=== PATIENT | female | born 1975 | race Caucasian/White ===

== ENCOUNTER 2020-12-28 08:53 | Emergency (ER) | payer OTHER, SELFPAY ==
[2020-12-28 09:00] VITALS: BP 98/50; PULSE 67; RESP 20; TEMP 36.5; O2SAT 100
--- NOTE | 2020-12-28 09:13 | ED.FEMALEGU ---
HPI - Female Genitourinary General Chief complaint: Urogenital-Female Stated complaint: poss uti Time Seen by Provider: 12/28/20 09:13 Source: patient History of Present Illness HPI Narrative: patient presents with concern for std. patient has a new sexual partner and did not use condoms. patient states she has been on Macrobid for the last 3 days for uti. Patient reports a history of bacterial vaginitis. no abdominal pain no vaginal bleeding no pelvic pain no vaginal discharge. no flank pain and no gross hematuria. MD elicited complaint: dysuria and possible STD Related Data Home Medications Medication Instructions Recorded Confirmed diclofenac sodium 75 mg PO BID 12/28/20 12/28/20 divalproex 500 mg PO BID 12/28/20 12/28/20 fluoxetine 20 mg PO DAILY 12/28/20 12/28/20 nitrofurantoin monohyd/m-cryst 100 mg PO BID 12/28/20 12/28/20 omeprazole 40 mg PO QAM 12/28/20 12/28/20 Allergies Allergy/AdvReac Type Severity Reaction Status Date / Time Sulfa (Sulfonamide Allergy Severe Anaphylaxis Verified 12/28/20 09:19 Antibiotics) Review of Systems Review of Systems: CONSTITUTIONAL: Denies fever, chills, or sweats. EYES: Denies visual changes, redness, or discharge. ENT: Denies rhinorrhea, congestion, sore throat, or otalgia. CARDIOVASCULAR: Denies chest pain, palpitations, or edema. RESPIRATORY: Denies cough or dyspnea. GASTROINTESTINAL: Denies abdominal pain, nausea, vomiting, or diarrhea. GENITOURINARY: Denies dysuria or hematuria. SKIN: Denies rash or itching. MUSCULOSKELETAL: Denies back pain, joint pain, or myalgia. NEUROLOGIC: Denies headache, numbness, or weakness. PSYCHIATRIC: Denies anxiety or depression. PMFSH Social History Social History Smoking status: Never smoker Comments At time of signature, agree with nursing past medical, surgical, social and family history. There is no relevant family history pertinent to the presenting complaint Exam Narrative: GENERAL: Well-appearing, well-nourished, and in no acute distress. HEAD: Normocephalic, atraumatic. EYES: PERRLA and EOMI. ENT: Nares clear, no rhinorrhea or epistaxis. Mucous membranes moist. NECK: Supple. CHEST: Clear to auscultation. No respiratory distress. HEART: Regular rate and rhythm. No murmur heard. Normal peripheral pulses. ABDOMEN: Soft, nontender, nondistended, normal active bowel sounds. EXTREMITIES: Normal range of motion. No edema. SKIN: Warm, dry, no rash. NEURO: No focal deficits. Alert and oriented x3. [place] Coma Scale Eye Opening: Spontaneous 4 [place] Coma Scale Motor: Obeys Commands 6 [place] Coma Scale Verbal: Oriented 5 [place] Coma Scale Total 15 Course Vital Signs Vital signs: Vital Signs Temperature 36.5 C 12/28/20 09:00 Pulse Rate 67 12/28/20 09:00 Respiratory Rate 20 12/28/20 09:00 Blood Pressure 98/50 L 12/28/20 09:00 Pulse Oximetry 100 12/28/20 09:00 Temperature 36.5 C 12/28/20 09:00 Pulse Rate 67 12/28/20 09:00 Respiratory Rate 20 12/28/20 09:00 Blood Pressure 98/50 L 12/28/20 09:00 Pulse Oximetry 100 12/28/20 09:00 MDM - Female Genitourinary Differential Diagnosis Differential diagnosis: Likely urinary tract infection, bacterial vaginosis, trichomoniasis, cervicitis, ovarian cyst, vaginitis, ruptured ovarian cyst, cystitis and dysmenorrhea Medical Records Attestation: I reviewed the patient's medical records. Lab Data Attestation: I reviewed the patient's lab results. Labs: UCG Bedside Result Negative Reference Range: Negative Urine Glucose Trace Reference Range: Negative Urine Glucose Trace Reference Range: Negative Urine Bilirubin Negative Reference Range: Negative Urine Bilirubin
== END 2020-12-28 09:30 | disposition home or self-care (01) ==
PROVIDERS: Emergency Provider Nurse Practitioner Family; PCP Nurse Practitioner Family
DX: Z20.2 Contact with and (suspected) exposure to infections with a predominantly sexual mode of transmission (principal)
CPT/HCPCS: 81003; 81025; 87086; 87088; 87491; 87591; 87661; 99204; G0463

== ENCOUNTER 2021-01-29 10:23 | Emergency (ER) | payer OTHER, SELFPAY ==
[2021-01-29 11:29] VITALS: BP 140/74; PULSE 62; RESP 16; TEMP 36.6; O2SAT 100
--- NOTE | 2021-01-29 12:03 | ED.FEMALEGU ---
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 She reports vaginal burning and itching, increases with urination. She reports being treated for yeast infection as well as bacterial vaginosis in the past month. She reports symptoms initially resolved and reports complaints again. She denies exposure to STDs. She denies all other complaints at this time. Related Data Home Medications Medication Instructions Recorded Confirmed diclofenac sodium 75 mg PO BID 12/28/20 01/29/21 divalproex 500 mg PO BID 12/28/20 01/29/21 fluoxetine 20 mg PO DAILY 12/28/20 01/29/21 omeprazole 40 mg PO QAM 12/28/20 01/29/21 Allergies Allergy/AdvReac Type Severity Reaction Status Date / Time Sulfa (Sulfonamide Allergy Severe Anaphylaxis Verified 01/29/21 11:48 Antibiotics) Review of Systems Review of Systems: CONSTITUTIONAL: Denies fever, chills, or sweats. EYES: Denies visual changes, redness, or discharge. ENT: Denies rhinorrhea, congestion, sore throat, or otalgia. CARDIOVASCULAR: Denies chest pain, palpitations, or edema. RESPIRATORY: Denies cough or dyspnea. GASTROINTESTINAL: Denies abdominal pain, nausea, vomiting, or diarrhea. GENITOURINARY: Reports vaginal burning and itching. MUSCULOSKELETAL: Denies back pain, joint pain, or myalgia. NEUROLOGIC: Denies headache, numbness, dizziness, or weakness. PSYCHIATRIC: Denies anxiety or depression. [facility] Past Medical History Medical History No significant past medical history Surgical History Surgical History No significant past surgical history Social History Social History (Updated 01/29/21 @ 12:11 by ALE Hernandez) Smoking status: Never smoker Alcohol intake: never Substance use: never Living arrangements: with family Occupation/Education: occupation Comments At the time of signature, I have reviewed and agree with nursing past medical, surgical, social, and family history unless otherwise noted. Please see nursing chart for further information. There is no relevant family history pertinent to the presenting complaint. Exam Narrative: GENERAL: Well-appearing, well-nourished, and in no acute distress. HEAD: Normocephalic, atraumatic. EYES: EOMI. No redness or drainage. Conjunctiva are normal. ENT: Mucous membranes pink and moist. CHEST: No respiratory distress. Clear to auscultation. HEART: Regular rate and rhythm. No murmur appreciated. Normal peripheral pulses. GI: Soft, nontender without rebound, or guarding. No distention. Bowel sounds normal in all quadrants. MUSCULOSKELETAL: No bony tenderness. EXTREMITIES: Normal range of motion. No edema. SKIN: Warm, dry, no rash. NEURO: No focal deficits. Alert and oriented x3. Gait steady. PSYCH: Normal affect. No signs of depression or anxiety. Course Vital Signs Vital signs: Vital Signs Temperature 36.6 C 01/29/21 11:29 Pulse Rate 62 01/29/21 11:29 Respiratory Rate 16 01/29/21 11:29 Blood Pressure 140/74 01/29/21 11:29 Pulse Oximetry 100 01/29/21 11:29 Temperature 36.6 C 01/29/21 11:29 Pulse Rate 62 01/29/21 11:29 Respiratory Rate 16 01/29/21 11:29 Blood Pressure 140/74 01/29/21 11:29 Pulse Oximetry 100 01/29/21 11:29 Reviewed-patient is informed that they may have pre-hypertension or hypertension based on a blood pressure reading. I recommend the patient call the primary care provider listed on their discharge instructions or a physician of their choice this week to arrange follow-up for further evaluation of possible pre-hypertension or hypertension. MDM - Female Genitourinary MDM Narrative Medic
== END 2021-01-29 12:20 | disposition home or self-care (01) ==
PROVIDERS: Emergency Provider Nurse Practitioner
DX: N89.8 Other specified noninflammatory disorders of vagina (principal); G40.909 Epilepsy, unspecified, not intractable, without status epilepticus
CPT/HCPCS: 81003; 99213; G0463

== ENCOUNTER 2021-05-27 15:49 | Emergency (ER) | payer OTHER, SELFPAY ==
--- NOTE | 2021-05-27 15:58 | ED.FEMALEGU ---
HPI - Female Genitourinary General Chief complaint: Urogenital-Female Stated complaint: poss uti Time Seen by Provider: 05/27/21 15:58 Source: patient and RN notes reviewed History of Present Illness HPI Narrative: Patient is a 45-year-old female who presents the urgent care with complaints of a possible UTI. Patient states that 2 days ago she started with frequency, itching and dysuria. Patient denies of any vaginal discharge, blood in the urine, fever, nausea, vomiting, abdominal pain. Patient does have frequent UTIs however her last culture was negative for bacteria. Patient took Azo at the onset of symptoms. No other acute complaints. No acute distress noted. Patient read the plan of care. Some parts of this dictation were generated by voice recognition software and may contain typographical and/or grammatical inaccuracies. Related Data Home Medications Medication Instructions Recorded Confirmed diclofenac sodium 75 mg PO BID 12/28/20 05/27/21 divalproex 500 mg PO BID 12/28/20 05/27/21 fluoxetine 20 mg PO DAILY 12/28/20 05/27/21 dicyclomine 20 mg PO QID 05/27/21 05/27/21 ergocalciferol (vitamin D2) 1,250 mcg PO WEEKLY 05/27/21 05/27/21 gabapentin 300 mg PO HS 05/27/21 05/27/21 pantoprazole 40 mg PO DAILY 05/27/21 05/27/21 topiramate 25 mg PO DAILY 05/27/21 05/27/21 Allergies Allergy/AdvReac Type Severity Reaction Status Date / Time Sulfa (Sulfonamide Allergy Severe Anaphylaxis Verified 05/27/21 16:04 Antibiotics) Review of Systems Review of Systems: CONSTITUTIONAL: Denies fever, chills, or sweats. EYES: Denies visual changes, redness, or discharge. ENT: Denies rhinorrhea, congestion, sore throat, or otalgia. CARDIOVASCULAR: Denies chest pain, palpitations, or edema. RESPIRATORY: Denies cough or dyspnea. GASTROINTESTINAL: Denies abdominal pain, nausea, vomiting, or diarrhea. GENITOURINARY: Reports of dysuria, urinary frequency and vaginal itching without vaginal discharge or blood in the urine SKIN: Denies rash or itching. MUSCULOSKELETAL: Denies back pain, joint pain, or myalgia. NEUROLOGIC: Denies headache, numbness, or weakness. All other systems reviewed are negative, except as documented in HPI. [facility] Past Medical History Medical History No significant past medical history Surgical History Surgical History No significant past surgical history Social History Social History (Updated 01/29/21 @ 12:11 by ALE Hernandez) Smoking status: Never smoker Alcohol intake: never Substance use: never Comments At the time of my signature, I reviewed and agree with the nursing past medical, surgical, social, and family history. There is no relevant family history pertinent to the patient complaint. Exam Narrative: GENERAL: This is a well-nourished, well-developed patient, in no apparent distress. HEAD: normocephalic, atraumatic. EYES: PERRL. Sclera clear/white. Vision is grossly intact. EARS: External ears normal NOSE: External nose normal with no obvious nasal discharge, nares without redness, no rhinorrhea. THROAT: Mucous membranes moist NECK: Neck supple CARDIOVASCULAR: Regular rate and rhythm without murmurs, gallops, or rubs. RESPIRATORY: Clear to auscultation. Breath sounds equal bilaterally. No wheezes, rales, or rhonchi. GASTROINTESTINAL: Abdomen soft, non-tender, nondistended. Bowel sounds are active. No hepato-splenomegaly, or palpable masses. No guarding. SKIN: warm, intact with no suspicious lesions or rash, good texture and turgor. NEURO: awake, alert, and oriented to person, place and time. There were no obvious focal neurologic abnormalities. EXTREMITIES: No clubbing, cyanosis, or edema. BACK: Nontender without deformity or crepitance. No flank tenderness. Course Course Level of Care: Express Care Visit Vital Signs Vital signs: Vital Signs Temperature 97.5
[2021-05-27 16:01] VITALS: BP 112/57; PULSE 92; RESP 16; TEMP 36.4; O2SAT 98
== END 2021-05-27 16:15 | disposition home or self-care (01) ==
PROVIDERS: Emergency Provider Nurse Practitioner Family
DX: N39.0 Urinary tract infection, site not specified (principal); G40.909 Epilepsy, unspecified, not intractable, without status epilepticus
CPT/HCPCS: 81003; 87086; 99213; G0463

== ENCOUNTER 2021-11-18 13:31 | Emergency (ER) | payer OTHER, SELFPAY ==
--- NOTE | 2021-11-18 13:34 | ED.FEMALEGU ---
HPI - Female Genitourinary General Chief complaint: Urogenital-Female Stated complaint: Vaginal Issue Time Seen by Provider: 11/18/21 13:34 Source: patient Mode of arrival: ambulatory Limitations: no limitations History of Present Illness HPI Narrative: Ms. Ramirez is a 46-year-old female patient presenting to the clinic today with complaints of burning with urination and vaginal irritation that started 1-1/2 hours ago. She reports she was out looking for jobs and began having discomfort and came into the [facility]. She reports that she was having sexual intercourse with her partner yesterday and he was pulling out and having her give oral and putting it back into her vagina. She reports that they have not had sex in some time so she was in a lot of pain during intercourse. She denies any bleeding from the vagina all odors, or discharge. Reports she is having burning with urination. Related Data Home Medications Medication Instructions Recorded Confirmed diclofenac sodium 75 mg 75 mg PO BID 12/28/20 11/18/21 tablet,delayed release divalproex 500 mg tablet,delayed 500 mg PO BID 12/28/20 11/18/21 release fluoxetine 20 mg capsule 20 mg PO DAILY 12/28/20 11/18/21 dicyclomine 20 mg tablet 20 mg PO QID 05/27/21 11/18/21 ergocalciferol (vitamin D2) 1,250 1,250 mcg PO WEEKLY 05/27/21 11/18/21 mcg (50,000 unit) capsule gabapentin 300 mg capsule 300 mg PO HS 05/27/21 11/18/21 pantoprazole 40 mg tablet,delayed 40 mg PO DAILY 05/27/21 11/18/21 release topiramate 25 mg tablet 25 mg PO DAILY 05/27/21 11/18/21 Allergies Allergy/AdvReac Type Severity Reaction Status Date / Time Sulfa (Sulfonamide Allergy Severe Anaphylaxis Verified 11/18/21 13:41 Antibiotics) Review of Systems Review of Systems: Pertinent positives per HPI. Patient denies any fever, chills, rash, headache, visual changes, dizziness, cough, runny nose, sore throat, shortness of breath, chest pain, palpitations, nausea, vomiting, diarrhea, constipation, abdominal pain, or any urinary issues. [facility] Past Medical History Medical History No significant past medical history Surgical History Surgical History No significant past surgical history Social History Social History Smoking status: Never smoker Alcohol intake: never Substance use: never Comments At the time of my signature, I reviewed and agree with the nursing past medical, surgical, social, and family history. There is no relevant family history pertinent to the patient complaint. Exam Narrative: General: Well-developed, well nourished, in no apparent distress Head: Normocephalic, atraumatic. Cardio: Regular rate and rhythm, s1 and s2 normal, no murmur appreciated. Resp: Clear to auscultation bilaterally, no rhonchi, rales, wheezing or rubs. Abdomen: Soft, pliable, bowel sounds present in all quadrants, non-tender to palpation, no CVAT tenderness. : Deferred Course Course Emergency Course: Portions of this record may have been created with voice recognition software. Level of Care: Express Care Visit Vital Signs Vital signs: Vital Signs Temperature 37.3 C 11/18/21 13:37 Pulse Rate 76 11/18/21 13:37 Respiratory Rate 16 11/18/21 13:37 Blood Pressure 119/59 L 11/18/21 13:37 Pulse Oximetry 100 11/18/21 13:37 Oxygen Delivery Room Air 11/18/21 13:37 Temperature 37.3 C 11/18/21 13:37 Pulse Rate 76 11/18/21 13:37 Respiratory Rate 16 11/18/21 13:37 Blood Pressure 119/59 L 11/18/21 13:37 Pulse Oximetry 100 11/18/21 13:37 Oxygen Delivery Room Air 11/18/21 13:37 Vital signs reviewed MDM - Female Genitourinary MDM Narrative Medical decision making narrative: At the time of visit patient is resting comfortably on the exam table. UA positive fo
[2021-11-18 13:37] VITALS: BP 119/59; PULSE 76; RESP 16; TEMP 37.3; O2SAT 100
== END 2021-11-18 14:13 | disposition home or self-care (01) ==
PROVIDERS: Emergency Provider Nurse Practitioner Family
DX: N30.01 Acute cystitis with hematuria (principal); G40.909 Epilepsy, unspecified, not intractable, without status epilepticus
CPT/HCPCS: 81003; 87077; 87086; 87088; 87186; 99213; G0463

== ENCOUNTER 2022-01-12 17:13 | Emergency (ER) | payer OTHER, SELFPAY ==
--- NOTE | 2022-01-12 17:18 | ED.FEMALEGU ---
HPI - Female Genitourinary General Chief complaint: Urogenital-Female Stated complaint: yeast or uti Time Seen by Provider: 01/12/22 17:19 Source: patient and RN notes reviewed History of Present Illness HPI Narrative: Patient is a 46-year-old female who presents the urgent care with complaints of a possible UTI and yeast infection. Patient has been to our facility 4 times within the last year for chronic UTI and yeast infections. 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 Patient states that she is not ready for hysterectomy and has continued to see her general doctor for continuous antibiotics and Diflucan. Patient was on Diflucan in November and Macrobid in October. Patient states that she started having burning with urination on Wednesday and itching from the front to the back over the last 24 to 48 hours. Patient denies of abdominal pain, nausea, vomiting, fever. States that she has had a mild increase in vaginal discharge. No other acute complaints. No acute distress noted. Patient aware of the plan of care. Some parts of this dictation were generated by voice recognition software and may contain typographical and/or grammatical inaccuracies. Related Data Home Medications Medication Instructions Recorded Confirmed divalproex 500 mg tablet,delayed 500 mg PO BID 12/28/20 01/12/22 release fluoxetine 20 mg capsule 20 mg PO DAILY 12/28/20 01/12/22 dicyclomine 20 mg tablet 20 mg PO QID 05/27/21 01/12/22 ergocalciferol (vitamin D2) 1,250 1,250 mcg PO WEEKLY 05/27/21 01/12/22 mcg (50,000 unit) capsule gabapentin 300 mg capsule 300 mg PO HS 05/27/21 01/12/22 pantoprazole 40 mg tablet,delayed 40 mg PO DAILY 05/27/21 01/12/22 release topiramate 25 mg tablet 25 mg PO DAILY 05/27/21 01/12/22 bupropion HCl 150 mg 24 hr tablet, 150 mg PO DAILY 01/12/22 01/12/22 extended release bupropion HCl 300 mg 24 hr tablet, 300 mg PO DAILY 01/12/22 01/12/22 extended release escitalopram oxalate 10 mg tablet 10 mg PO DAILY 01/12/22 01/12/22 Allergies Allergy/AdvReac Type Severity Reaction Status Date / Time Sulfa (Sulfonamide Allergy Severe Anaphylaxis Verified 01/12/22 17:25 Antibiotics) Review of Systems Review of Systems: CONSTITUTIONAL: Denies fever, chills, or sweats. EYES: Denies visual changes, redness, or discharge. ENT: Denies rhinorrhea, congestion, sore throat, or otalgia. CARDIOVASCULAR: Denies chest pain, palpitations, or edema. RESPIRATORY: Denies cough or dyspnea. GASTROINTESTINAL: Denies abdominal pain, nausea, vomiting, or diarrhea. GENITOURINARY: Reports of dysuria and vaginal irritation/itching SKIN: Denies rash or itching. MUSCULOSKELETAL: Denies back pain, joint pain, or myalgia. NEUROLOGIC: Denies headache, numbness, or weakness. All other systems reviewed are negative, except as documented in HPI. [facility] Past Medical History Medical History No significant past medical history Surgical History Surgical History No significant past surgical history Social History Social History Smoking status: Never smoker Alcohol intake: never Substance use: never Comments At the time of my signature, I reviewed and agree with the nursing past medical, surgical, social, and family history. There is no relevant family history pertinent to the patient complaint. Exam Narrative: GENERAL: This is a well-nourished, well-developed patient, in no apparent distress. HEAD: normocephalic, atraumatic. EYES: PERRL. Sclera clear/white. Vision is grossly intact. EARS: External ears normal NOSE: External nose normal with no obvious nasal discharge, nares without redness, no rhinorrhea. THROAT: Mucous membranes moist NECK: Neck supple CARDIOVASCULAR: Regular rate and rhy
[2022-01-12 17:20] VITALS: BP 100/75; PULSE 80; RESP 14; TEMP 37; O2SAT 99
[2022-01-12 17:30] VITALS: BP 100/75; PULSE 80; RESP 14; TEMP 37; O2SAT 99
== END 2022-01-12 17:58 | disposition home or self-care (01) ==
PROVIDERS: Emergency Provider Nurse Practitioner Family
DX: B37.3 Candidiasis of vulva and vagina (principal); N39.0 Urinary tract infection, site not specified; K21.9 Gastro-esophageal reflux disease without esophagitis; F32.A Depression, unspecified
CPT/HCPCS: 81003; 87086; 99213; G0463

== ENCOUNTER 2022-02-22 16:06 | Emergency (ER) | payer OTHER, SELFPAY ==
[2022-02-22 16:13] VITALS: BP 116/67; PULSE 84; RESP 20; TEMP 36.9; O2SAT 100
--- NOTE | 2022-02-22 16:14 | ED.URI ---
HPI - URI/Sore Throat General Chief Complaint: Upper Respiratory Infection Stated Complaint: cough headache runny nose Time Seen by Provider: 02/22/22 16:14 Source: patient and RN notes reviewed History of Present Illness HPI Narrative: Patient is a 46-year-old female who presents the urgent care with complaints of rhinorrhea, sore throat, headache and cough. Patient states symptoms started yesterday. Patient is taking Tylenol [id number]. Denies any known ill contacts. No other acute complaints. No acute distress noted. Patient aware of the plan of care. Some parts of this dictation were generated by voice recognition software and may contain typographical and/or grammatical inaccuracies. Related Data Home Medications Medication Instructions Recorded Confirmed divalproex 500 mg tablet,delayed 500 mg PO BID 12/28/20 01/12/22 release fluoxetine 20 mg capsule 20 mg PO DAILY 12/28/20 01/12/22 dicyclomine 20 mg tablet 20 mg PO QID 05/27/21 01/12/22 ergocalciferol (vitamin D2) 1,250 1,250 mcg PO WEEKLY 05/27/21 01/12/22 mcg (50,000 unit) capsule gabapentin 300 mg capsule 300 mg PO HS 05/27/21 01/12/22 pantoprazole 40 mg tablet,delayed 40 mg PO DAILY 05/27/21 01/12/22 release topiramate 25 mg tablet 25 mg PO DAILY 05/27/21 01/12/22 bupropion HCl 150 mg 24 hr tablet, 150 mg PO DAILY 01/12/22 01/12/22 extended release bupropion HCl 300 mg 24 hr tablet, 300 mg PO DAILY 01/12/22 01/12/22 extended release escitalopram oxalate 10 mg tablet 10 mg PO DAILY 01/12/22 01/12/22 Allergies Allergy/AdvReac Type Severity Reaction Status Date / Time Sulfa (Sulfonamide Allergy Severe Anaphylaxis Verified 02/22/22 16:26 Antibiotics) Review of Systems Review of Systems: CONSTITUTIONAL: Denies fever, chills, or sweats. EYES: Denies visual changes, redness, or discharge. ENT: Reports of sore throat, rhinorrhea CARDIOVASCULAR: Denies chest pain, palpitations, or edema. RESPIRATORY: Reports of cough without dyspnea GASTROINTESTINAL: Denies abdominal pain, nausea, vomiting, or diarrhea. GENITOURINARY: Denies dysuria or hematuria. SKIN: Denies rash or itching. MUSCULOSKELETAL: Denies back pain, joint pain. Reports of body aches NEUROLOGIC: Reports of headache All other systems reviewed are negative, except as documented in HPI. [facility] Past Medical History Medical History No significant past medical history Surgical History Surgical History No significant past surgical history Social History Social History Smoking status: Never smoker Alcohol intake: never Substance use: never Comments At the time of my signature, I reviewed and agree with the nursing past medical, surgical, social, and family history. There is no relevant family history pertinent to the patient complaint. Exam Narrative: GENERAL: This is a well-nourished, well-developed patient, in no apparent distress. HEAD: normocephalic, atraumatic. EYES: PERRL. Sclera clear/white. Vision is grossly intact. EARS: External ears normal, auditory canals clear and without drainage, TMs normal without perforation. Hearing grossly intact. NOSE: External nose normal with no obvious nasal discharge, nares without redness, clear rhinorrhea. THROAT: Mucous membranes moist, posterior pharynx clear. Mild postnasal drainage NECK: Neck supple, non-tender without lymphadenopathy CARDIOVASCULAR: Regular rate and rhythm without murmurs, gallops, or rubs. RESPIRATORY: Dry cough noted on exam. Clear to auscultation. Breath sounds equal bilaterally. No wheezes, rales, or rhonchi. SKIN: warm, intact with no suspicious lesions or rash, good texture and turgor. NEURO: awake, alert, and oriented to person, place and time. There were no obvious focal neurologic abnormalities. EXTREMITIES: No
== END 2022-02-22 16:55 | disposition home or self-care (01) ==
PROVIDERS: Emergency Provider Nurse Practitioner Family
DX: J06.9 Acute upper respiratory infection, unspecified (principal); K21.9 Gastro-esophageal reflux disease without esophagitis
CPT/HCPCS: 87081; 87804; 87880; 99213; G0463

== ENCOUNTER 2022-04-25 17:03 | Emergency (ER) | payer OTHER, SELFPAY ==
[2022-04-25 17:10] VITALS: BP 106/70; PULSE 81; RESP 16; TEMP 36.7; O2SAT 100
--- NOTE | 2022-04-25 17:11 | ED.FEMALEGU ---
HPI - Female Genitourinary General Chief complaint: Urogenital-Female Stated complaint: UTI Time Seen by Provider: 04/25/22 17:12 Source: patient and RN notes reviewed History of Present Illness HPI Narrative: Patient is a 46-year-old female who presents to urgent care with complaints of possible UTI due to burning irritation that started this. Patient states that the irritation did start last night and she does have a a history of yeast infections as well as UTI. Patient denies any nausea, fever, abdominal pain. Patient has not taken anything [id number] for her symptoms. No other acute complaints. No acute distress noted. Some parts of this dictation were generated by voice recognition software and may contain typographical and/or grammatical inaccuracies. Related Data Home Medications Medication Instructions Recorded Confirmed divalproex 500 mg tablet,delayed 500 mg PO BID 12/28/20 04/25/22 release fluoxetine 20 mg capsule 20 mg PO DAILY 12/28/20 04/25/22 ergocalciferol (vitamin D2) 1,250 1,250 mcg PO WEEKLY 05/27/21 04/25/22 mcg (50,000 unit) capsule gabapentin 300 mg capsule 300 mg PO HS 05/27/21 04/25/22 pantoprazole 40 mg tablet,delayed 40 mg PO DAILY 05/27/21 04/25/22 release topiramate 25 mg tablet 25 mg PO DAILY 05/27/21 04/25/22 bupropion HCl 300 mg 24 hr tablet, 300 mg PO DAILY 01/12/22 04/25/22 extended release escitalopram oxalate 10 mg tablet 10 mg PO DAILY 01/12/22 04/25/22 Allergies Allergy/AdvReac Type Severity Reaction Status Date / Time Sulfa (Sulfonamide Allergy Severe Anaphylaxis Verified 04/25/22 17:16 Antibiotics) Review of Systems Review of Systems: CONSTITUTIONAL: Denies fever, chills, or sweats. EYES: Denies visual changes, redness, or discharge. ENT: Denies rhinorrhea, congestion, sore throat, or otalgia. CARDIOVASCULAR: Denies chest pain, palpitations, or edema. RESPIRATORY: Denies cough or dyspnea. GASTROINTESTINAL: Denies abdominal pain, nausea, vomiting, or diarrhea. GENITOURINARY: Reports vaginal irritation and dysuria SKIN: Denies rash or itching. MUSCULOSKELETAL: Denies back pain, joint pain, or myalgia. NEUROLOGIC: Denies headache, numbness, or weakness. All other systems reviewed are negative, except as documented in HPI. [facility] Past Medical History Medical History No significant past medical history Surgical History Surgical History No significant past surgical history Social History Social History Smoking status: Never smoker Alcohol intake: never Substance use: never Comments At the time of my signature, I reviewed and agree with the nursing past medical, surgical, social, and family history. There is no relevant family history pertinent to the patient complaint. Exam Narrative: GENERAL: This is a well-nourished, well-developed patient, in no apparent distress. HEAD: normocephalic, atraumatic. EYES: PERRL. Sclera clear/white. Vision is grossly intact. EARS: External ears normal NOSE: External nose normal with no obvious nasal discharge, nares without redness, no rhinorrhea. THROAT: Mucous membranes moist NECK: Neck supple CARDIOVASCULAR: Regular rate and rhythm without murmurs, gallops, or rubs. RESPIRATORY: Clear to auscultation. Breath sounds equal bilaterally. No wheezes, rales, or rhonchi. GASTROINTESTINAL: Abdomen soft, non-tender, nondistended. : patient deferred vaginal exam SKIN: warm, intact with no suspicious lesions or rash, good texture and turgor. NEURO: awake, alert, and oriented to person, place and time. There were no obvious focal neurologic abnormalities. EXTREMITIES: No clubbing, cyanosis, or edema. BACK: negative bilateral CVA tenderness Course Course Level of Care: Express Care Visit Vital Signs Vital signs: Vital
[2022-04-25 17:18] VITALS: BP 106/70; PULSE 81; RESP 16; TEMP 36.7; O2SAT 100
== END 2022-04-25 17:34 | disposition home or self-care (01) ==
PROVIDERS: Emergency Provider Nurse Practitioner Family
DX: R10.2 Pelvic and perineal pain (principal); K21.9 Gastro-esophageal reflux disease without esophagitis; F32.A Depression, unspecified; G40.909 Epilepsy, unspecified, not intractable, without status epilepticus
CPT/HCPCS: 81003; 87086; 99213; G0463

== ENCOUNTER 2022-07-25 11:21 | Emergency (ER) | payer OTHER, SELFPAY ==
[2022-07-25 11:30] VITALS: BP 122/70; PULSE 59; RESP 16; TEMP 36.7; O2SAT 100
--- NOTE | 2022-07-25 11:48 | ED.EXTPRO ---
HPI - Extremity Problem General Chief complaint: Extremity Injury, Upper Stated complaint: Right Shoulder Pain Source: patient and RN notes reviewed History of Present Illness HPI Narrative: 47-year-old female presents to urgent care with complaints of right upper arm pain. Patient states this has been going on for the last couple weeks he denies any known injury. 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 Patient states the pain radiates from right posterior shoulder to right buttock humerus. Reports some numbness and tingling down to her lower arm. Reports some posterior neck pain. Denies any fevers, chills, chest pain, shortness of breath, or vomiting. Patient has taken ibuprofen with minimal relief. Some parts of this dictation were generated by voice recognition software and may contain typographical and/or grammatical inaccuracies. Related Data Home Medications Medication Instructions Recorded Confirmed divalproex 500 mg tablet,delayed 500 mg PO BID 12/28/20 07/25/22 release fluoxetine 20 mg capsule 20 mg PO DAILY 12/28/20 07/25/22 ergocalciferol (vitamin D2) 1,250 1,250 mcg PO WEEKLY 05/27/21 07/25/22 mcg (50,000 unit) capsule gabapentin 300 mg capsule 300 mg PO HS 05/27/21 07/25/22 pantoprazole 40 mg tablet,delayed 40 mg PO DAILY 05/27/21 07/25/22 release topiramate 25 mg tablet 25 mg PO DAILY 05/27/21 07/25/22 bupropion HCl 300 mg 24 hr tablet, 300 mg PO DAILY 01/12/22 07/25/22 extended release escitalopram oxalate 10 mg tablet 10 mg PO DAILY 01/12/22 07/25/22 Allergies Allergy/AdvReac Type Severity Reaction Status Date / Time Sulfa (Sulfonamide Allergy Severe Anaphylaxis Verified 07/25/22 11:36 Antibiotics) Review of Systems Review of Systems: CONSTITUTIONAL: Denies fever, chills, or sweats. EYES: Denies visual changes, redness, or discharge. ENT: Denies otalgia and sore throat CARDIOVASCULAR: Denies chest pain, palpitations, or edema. RESPIRATORY: Denies cough or dyspnea. GASTROINTESTINAL: Denies abdominal pain, nausea, vomiting, or diarrhea. GENITOURINARY: Denies dysuria or hematuria. SKIN: Denies rash or itching. MUSCULOSKELETAL: Right upper arm pain NEUROLOGIC: Denies headache or weakness. [facility] Past Medical History Medical History No significant past medical history Surgical History Surgical History No significant past surgical history Social History Social History Smoking status: Never smoker Alcohol intake: never Substance use: never Living arrangements: with family Occupation/Education: occupation Comments At the time of my signature, I reviewed and agree with the nursing past medical, surgical, social, and family history. There is no relevant family history pertinent to the patient complaint. Exam Narrative: GENERAL: This is a well-nourished, well-developed patient, in no apparent distress. HEAD: normocephalic, atraumatic. EYES: PERRL. Sclera clear/white. Vision is grossly intact. EARS: External ears normal, auditory canals clear and without drainage, TMs normal without perforation. Hearing grossly intact. NOSE: External nose normal with no obvious nasal discharge, nares without redness, no rhinorrhea. THROAT: Mucous membranes moist, posterior pharynx clear. NECK: Neck supple, non-tender without lymphadenopathy, masses or thyromegaly. CARDIOVASCULAR: Regular rate and rhythm without murmurs, gallops, or rubs. RESPIRATORY: Clear to auscultation. Breath sounds equal bilaterally. No wheezes, rales, or rhonchi. GASTROINTESTINAL: Abdomen soft, non-tender, nondistended. Bowel sounds are active. No hepato-splenomegaly, or palpable masses. No guarding. SKIN: warm, intact with no suspicious lesions or rash, good texture and turgor. NEURO: awake, alert, and oriente
== END 2022-07-25 11:52 | disposition home or self-care (01) ==
PROVIDERS: Emergency Provider Nurse Practitioner Family
DX: M54.12 Radiculopathy, cervical region (principal)
CPT/HCPCS: 99213; G0463

== ENCOUNTER 2022-08-07 18:10 | Emergency (ER) | payer OTHER, SELFPAY ==
--- NOTE | 2022-08-07 18:15 | ED.GENADULT ---
HPI - General Adult General Chief complaint: Urogenital-Female Stated complaint: poss uti Source: patient and RN notes reviewed History of Present Illness HPI narrative: 47-year-old female presents to urgent care with complaints of burning and itching vagina x2 days. Patient denies any vaginal discharge. Patient is unsure if she has burning with urination. Denies any fevers, chills, abdominal pain vomiting, diarrhea, or constipation. Patient reports pain on multiple antibiotics approximately 1 month ago due to a dental infection. Some parts of this dictation were generated by voice recognition software and may contain typographical and/or grammatical inaccuracies. Related Data Home Medications Medication Instructions Recorded Confirmed divalproex 500 mg tablet,delayed 500 mg PO BID 12/28/20 08/07/22 release fluoxetine 20 mg capsule 20 mg PO DAILY 12/28/20 08/07/22 ergocalciferol (vitamin D2) 1,250 1,250 mcg PO WEEKLY 05/27/21 08/07/22 mcg (50,000 unit) capsule gabapentin 300 mg capsule 300 mg PO HS 05/27/21 08/07/22 pantoprazole 40 mg tablet,delayed 40 mg PO DAILY 05/27/21 08/07/22 release topiramate 25 mg tablet 25 mg PO DAILY 05/27/21 08/07/22 bupropion HCl 300 mg 24 hr tablet, 300 mg PO DAILY 01/12/22 08/07/22 extended release escitalopram oxalate 10 mg tablet 10 mg PO DAILY 01/12/22 08/07/22 Allergies Allergy/AdvReac Type Severity Reaction Status Date / Time Sulfa (Sulfonamide Allergy Severe Anaphylaxis Verified 07/25/22 11:36 Antibiotics) Review of Systems Review of Systems: Pertinent positives and pertinent negatives per HPI. [facility] Past Medical History Medical History No significant past medical history Surgical History Surgical History No significant past surgical history Social History Social History Smoking status: Never smoker Alcohol intake: never Substance use: never Living arrangements: with family Occupation/Education: occupation Comments At the time of my signature, I reviewed and agree with the nursing past medical, surgical, social, and family history. There is no relevant family history pertinent to the patient complaint. Exam Narrative: GENERAL: This is a well-nourished, well-developed patient, in no apparent distress. HEAD: normocephalic, atraumatic. EYES: PERRL. Sclera clear/white. Vision is grossly intact. EARS: External ears normal, auditory canals clear and without drainage, TMs normal without perforation. Hearing grossly intact. NOSE: External nose normal with no obvious nasal discharge, nares without redness, no rhinorrhea. THROAT: Mucous membranes moist, posterior pharynx clear. NECK: Neck supple, non-tender without lymphadenopathy, masses or thyromegaly. CARDIOVASCULAR: Regular rate and rhythm without murmurs, gallops, or rubs. RESPIRATORY: Clear to auscultation. Breath sounds equal bilaterally. No wheezes, rales, or rhonchi. GASTROINTESTINAL: Abdomen soft, non-tender, nondistended. Bowel sounds are active. No hepato-splenomegaly, or palpable masses. No guarding. SKIN: warm, intact with no suspicious lesions or rash, good texture and turgor. NEURO: awake, alert, and oriented to person, place and time. There were no obvious focal neurologic abnormalities. Course Course Level of Care: Express Care Visit Vital Signs Vital signs: Vital Signs Temperature 98 F 08/07/22 18:21 Pulse Rate 100 08/07/22 18:21 Respiratory Rate 18 08/07/22 18:21 Blood Pressure 104/36 L 08/07/22 18:21 Pulse Oximetry 100 08/07/22 18:21 Oxygen Delivery Room Air 08/07/22 18:21 Temperature 98 F 08/07/22 18:33 Pulse Rate 100 08/07/22 18:33 Respiratory Rate 18 08/07/22 18:33 Blood Pressure 104/36 L 08/07/22 18:33 Pulse Oximetry 100 08/07/22 18:33 Oxygen Delivery
[2022-08-07 18:21] VITALS: BP 104/36; PULSE 100; RESP 18; TEMP 36.6; O2SAT 100
[2022-08-07 18:33] VITALS: BP 104/36; PULSE 100; RESP 18; TEMP 36.6; O2SAT 100
== END 2022-08-07 19:00 | disposition home or self-care (01) ==
PROVIDERS: Emergency Provider Nurse Practitioner Family
DX: B37.31 Acute candidiasis of vulva and vagina (principal)
CPT/HCPCS: 81003; 87086; 99213; G0463

== ENCOUNTER 2022-08-18 18:39 | Emergency (ER) | payer OTHER, SELFPAY ==
--- NOTE | ~2022-08-18 | XR_ITS ---
EXAMINATION: XR shoulder RT min 2V INDICATION: Right shoulder pain TECHNIQUE: Four views of the right shoulder are submitted. COMPARISON: None FINDINGS: Normal alignment. No fracture. Glenohumeral and acromioclavicular joint spaces are normal. Soft tissues are unremarkable. IMPRESSION: 1. No acute osseous abnormality. Reviewed, dictated and finalized at location F.
[2022-08-18 18:48] VITALS: BP 118/62; PULSE 82; RESP 16; TEMP 36.5; O2SAT 100
--- NOTE | 2022-08-18 19:43 | ED.GENADULT ---
HPI - General Adult General Chief complaint: Extremity Injury, Upper Stated complaint: Right Arm Pain Source: patient Mode of arrival: ambulatory Limitations: no limitations History of Present Illness HPI narrative: PATIENT PRESENTS FOR EVALUATION RIGHT UPPER EXTREMITY PAIN FOR THE LAST MONTH. SHE CANNOT IDENTIFY ANY PRECIPITATING CAUSE OR INJURY. SHE DOES WORK AT [employer] AND STATES IT IS QUITE POSSIBLE SHE INJURED HERSELF WORKING, HOWEVER SHE CANNOT REMEMBER ANY SPECIFIC EVENT. PAIN WAS INITIALLY INTERMITTENT BUT IS NOW FAIRLY CONSTANT, THROBBING, RATED 8/10 SEVERITY, RADIATING DOWN THE ENTIRE RIGHT UPPER EXTREMITY. MOVEMENT MAKES HER PAIN WORSE. SHE INDICATES SHE TOOK STEROIDS, NAPROXEN MUSCLE RELAXER IN THE PAST WHICH SEEMED TO HELP. SHE IS LEFT-HAND DOMINANT. SHE HAS NOT HAD ANY IMAGING. HER PCP ADVISED SHE USE TOPICAL VOLTAREN. THE MEDICATION IS NOT HELPING. Related Data Home Medications Medication Instructions Recorded Confirmed divalproex 500 mg tablet,delayed 500 mg PO BID 12/28/20 08/07/22 release fluoxetine 20 mg capsule 20 mg PO DAILY 12/28/20 08/07/22 ergocalciferol (vitamin D2) 1,250 1,250 mcg PO WEEKLY 05/27/21 08/07/22 mcg (50,000 unit) capsule gabapentin 300 mg capsule 300 mg PO HS 05/27/21 08/07/22 pantoprazole 40 mg tablet,delayed 40 mg PO DAILY 05/27/21 08/07/22 release topiramate 25 mg tablet 25 mg PO DAILY 05/27/21 08/07/22 bupropion HCl 300 mg 24 hr tablet, 300 mg PO DAILY 01/12/22 08/07/22 extended release escitalopram oxalate 10 mg tablet 10 mg PO DAILY 01/12/22 08/07/22 Allergies Allergy/AdvReac Type Severity Reaction Status Date / Time Sulfa (Sulfonamide Allergy Severe Anaphylaxis Verified 07/25/22 11:36 Antibiotics) Review of Systems Review of Systems: CONSTITUTIONAL: DENIES FEVER, CHILLS, OR SWEATS. EYES: DENIES VISUAL CHANGES, REDNESS, OR DISCHARGE. ENT: DENIES RHINORRHEA, CONGESTION, SORE THROAT, OR OTALGIA. CARDIOVASCULAR: DENIES CHEST PAIN, PALPITATIONS, OR EDEMA. RESPIRATORY: DENIES COUGH OR DYSPNEA. GASTROINTESTINAL: DENIES ABDOMINAL PAIN, NAUSEA, VOMITING, OR DIARRHEA. GENITOURINARY: DENIES DYSURIA OR HEMATURIA. SKIN: DENIES RASH OR ITCHING. MUSCULOSKELETAL: REPORTS RIGHT UPPER EXTREMITY PAIN. DENIES BACK PAIN NEUROLOGIC: DENIES HEADACHE, NUMBNESS, DIZZINESS, OR WEAKNESS. PSYCHIATRIC: DENIES ANXIETY OR DEPRESSION. [facility] Past Medical History Medical History Epilepsy Surgical History Surgical History No significant past surgical history Family History Family History Mother Family history non-contributory Social History Social History Smoking status: Never smoker Alcohol intake: never Substance use: never Living arrangements: with family Occupation/Education: occupation Gender identity (if verbalized by the patient): Female Spiritual care concerns: No Exam Narrative: GENERAL: WELL-APPEARING, WELL-NOURISHED, AND IN NO ACUTE DISTRESS. HEAD: NORMOCEPHALIC, ATRAUMATIC. EYES: PERRLA AND EOMI. ENT: NARES CLEAR, NO RHINORRHEA OR EPISTAXIS. MUCOUS MEMBRANES MOIST. OROPHARYNX WITHOUT TONSILLAR HYPERTROPHY EXUDATE OR OTHER LESIONS. BILATERAL TMS PEARLY COFFEY NONBULGING NECK: SUPPLE. NO ADENOPATHY OR MASSES. NO CAROTID BRUITS OR JVD CHEST: CLEAR TO AUSCULTATION. NO RESPIRATORY DISTRESS. NO WHEEZES RALES OR RHONCHI HEART: REGULAR RATE AND RHYTHM. NO MURMUR HEARD. NORMAL PERIPHERAL PULSES. ABDOMEN: SOFT, NONTENDER, NONDISTENDED, NORMAL ACTIVE BOWEL SOUNDS. EXTREMITIES: FULL RANGE OF MOTION OF THE RIGHT SHOULDER. NO CREPITUS OR DEFORMITY. SHE DOES HAVE HESITANCY WITH ELEVATION OF THE RIGHT UPPER EXTREMITY AT THE SHOULDER JOINT SECONDARY TO PAIN. THERE IS TENDERNESS IN THE RIGHT SHOULDER. 5/5 [employer]LO[employer] STRENGTH
== END 2022-08-18 20:05 | disposition home or self-care (01) ==
PROVIDERS: Emergency Provider Nurse Practitioner
DX: M25.511 Pain in right shoulder (principal); M54.10 Radiculopathy, site unspecified
CPT/HCPCS: 73030; 99213; G0463

== ENCOUNTER 2022-11-20 16:21 | Emergency (ER) | payer OTHER, SELFPAY ==
[2022-11-20 16:25] VITALS: BP 94/62; PULSE 58; RESP 16; TEMP 36.4; O2SAT 99
--- NOTE | 2022-11-20 16:43 | ED.FEMALEGU ---
HPI - Female Genitourinary General Chief complaint: Urogenital-Female Stated complaint: Vaginal Issue/Urianry Problem Source: patient and RN notes reviewed History of Present Illness HPI Narrative: 47 yo F presents to urgent care with complaints of dysuria x 2-3 days. Pt states she was treated for a yeast infection a few days ago with a Diflucan pill with good results. Reports bilateral lower back pain as well. Denies any fevers, chills, vomiting, abdominal pain, chest pain, or SOB. Related Data Home Medications Medication Instructions Recorded Confirmed divalproex 500 mg tablet,delayed 500 mg PO BID 12/28/20 11/20/22 release fluoxetine 20 mg capsule 20 mg PO DAILY 12/28/20 11/20/22 ergocalciferol (vitamin D2) 1,250 1,250 mcg PO WEEKLY 05/27/21 11/20/22 mcg (50,000 unit) capsule gabapentin 300 mg capsule 600 mg PO HS 05/27/21 11/20/22 pantoprazole 40 mg tablet,delayed 40 mg PO DAILY 05/27/21 11/20/22 release topiramate 25 mg tablet 25 mg PO DAILY 05/27/21 11/20/22 bupropion HCl 300 mg 24 hr tablet, 150 mg PO DAILY 01/12/22 11/20/22 extended release escitalopram oxalate 10 mg tablet 10 mg PO DAILY 01/12/22 11/20/22 Allergies Allergy/AdvReac Type Severity Reaction Status Date / Time Sulfa (Sulfonamide Allergy Severe Anaphylaxis Verified 11/20/22 16:38 Antibiotics) Review of Systems Review of Systems: CONSTITUTIONAL: Denies fever, chills, or sweats. EYES: Denies visual changes, redness, or discharge. ENT: Denies otalgia and sore throat CARDIOVASCULAR: Denies chest pain, palpitations, or edema. RESPIRATORY: Denies cough or dyspnea. GASTROINTESTINAL: Denies abdominal pain, nausea, vomiting, or diarrhea. GENITOURINARY: Denies dysuria or hematuria. SKIN: Denies rash or itching. MUSCULOSKELETAL: Denies back pain, joint pain, or myalgia. NEUROLOGIC: Denies headache, numbness, or weakness. Pertinent positives per HPI. [facility] Past Medical History Medical History Epilepsy Surgical History Surgical History No significant past surgical history Family History Family History Mother Family history non-contributory Social History Social History Smoking status: Never smoker Alcohol intake: never Substance use: never Living arrangements: with family Occupation/Education: occupation Gender identity (if verbalized by the patient): Female Spiritual care concerns: No Comments At the time of my signature, I reviewed and agree with the nursing past medical, surgical, social, and family history. There is no relevant family history pertinent to the patient complaint. Exam Narrative: GENERAL: This is a well-nourished, well-developed patient, in no apparent distress. HEAD: normocephalic, atraumatic. EYES: Sclera clear/white. Vision is grossly intact. EARS: External ears normal, auditory canals clear and without drainage, TMs normal without perforation. Hearing grossly intact. NOSE: External nose normal with no obvious nasal discharge, nares without redness, no rhinorrhea. THROAT: Mucous membranes moist, posterior pharynx clear. NECK: Neck supple, non-tender without lymphadenopathy, masses or thyromegaly. CARDIOVASCULAR: Regular rate and rhythm without murmurs, gallops, or rubs. RESPIRATORY: Clear to auscultation. Breath sounds equal bilaterally. No wheezes, rales, or rhonchi. GASTROINTESTINAL: Abdomen soft, non-tender, nondistended. Bowel sounds are active. No hepato-splenomegaly, or palpable masses. No guarding. SKIN: warm, intact with no suspicious lesions or rash, good texture and turgor. NEURO: awake, alert, and oriented to person, place and time. There were no obvious focal neurologic abnormalities. EXTREMITIES: No clubbing, cyanosis, or edema. No ryan
[2022-11-20 16:47] VITALS: BP 94/62; PULSE 58; RESP 16; TEMP 36.4; O2SAT 99
== END 2022-11-20 17:00 | disposition home or self-care (01) ==
PROVIDERS: Emergency Provider Nurse Practitioner Family
DX: N39.0 Urinary tract infection, site not specified (principal)
CPT/HCPCS: 81003; 87086; 87088; 99213; G0463

== ENCOUNTER 2023-02-06 14:06 | Emergency (ER) | payer OTHER, SELFPAY ==
[2023-02-06 14:37] VITALS: BP 101/66; PULSE 64; RESP 18; TEMP 36.7; O2SAT 100
--- NOTE | 2023-02-06 15:46 | ED.GENADULT ---
HPI - General Adult General Chief complaint: Urogenital-Female Stated complaint: Urinary Problem Source: patient Mode of arrival: ambulatory Limitations: no limitations History of Present Illness HPI narrative: Patient presents for evaluation of urinary symptoms for the past two days. Symptoms include dysuria, urinary frequency, suprapubic pressure and low back pain. No fever, chills, nausea, vomiting, vaginal bleeding/discharge. She states she thinks she has a urinary tract infection. Related Data Home Medications Medication Instructions Recorded Confirmed divalproex 500 mg tablet,delayed 500 mg PO BID 12/28/20 11/20/22 release fluoxetine 20 mg capsule 20 mg PO DAILY 12/28/20 11/20/22 ergocalciferol (vitamin D2) 1,250 1,250 mcg PO WEEKLY 05/27/21 11/20/22 mcg (50,000 unit) capsule gabapentin 300 mg capsule 600 mg PO HS 05/27/21 11/20/22 pantoprazole 40 mg tablet,delayed 40 mg PO DAILY 05/27/21 11/20/22 release topiramate 25 mg tablet 25 mg PO DAILY 05/27/21 11/20/22 bupropion HCl 300 mg 24 hr tablet, 150 mg PO DAILY 01/12/22 11/20/22 extended release escitalopram oxalate 10 mg tablet 10 mg PO DAILY 01/12/22 11/20/22 Allergies Allergy/AdvReac Type Severity Reaction Status Date / Time Sulfa (Sulfonamide Allergy Severe Anaphylaxis Verified 11/20/22 16:38 Antibiotics) Review of Systems Review of Systems: CONSTITUTIONAL: Denies fever, chills, or sweats. EYES: Denies visual changes, redness, or discharge. ENT: Denies rhinorrhea, congestion, sore throat, or otalgia. CARDIOVASCULAR: Denies chest pain, palpitations, or edema. RESPIRATORY: Denies cough or dyspnea. GASTROINTESTINAL: Denies abdominal pain, nausea, vomiting, or diarrhea. GENITOURINARY: Reports urinary frequency, dysuria and suprapubic pressure SKIN: Denies rash or itching. MUSCULOSKELETAL: Reports low back pain. Denies joint pain, or myalgia. NEUROLOGIC: Denies headache, numbness, dizziness, or weakness. PSYCHIATRIC: Denies anxiety or depression. [facility] Past Medical History Medical History Epilepsy Surgical History Surgical History No significant past surgical history Family History Family History Mother Family history non-contributory Social History Social History Smoking status: Never smoker Alcohol intake: never Substance use: never Living arrangements: with family Occupation/Education: occupation Gender identity (if verbalized by the patient): Female Spiritual care concerns: No Exam Narrative: GENERAL: Well-appearing, well-nourished, and in no acute distress. HEAD: Normocephalic, atraumatic. EYES: PERRLA and EOMI. ENT: Nares clear, no rhinorrhea or epistaxis. Mucous membranes moist. Oropharynx without tonsillar hypertrophy exudate or other lesions. Bilateral TMs pearly prince nonbulging NECK: Supple. No adenopathy or masses. No carotid bruits or JVD CHEST: Clear to auscultation. No respiratory distress. No wheezes rales or rhonchi HEART: Regular rate and rhythm. No murmur heard. Normal peripheral pulses. ABDOMEN: Soft, nontender, nondistended, normal active bowel sounds. BACK: No CVA tenderness EXTREMITIES: Normal range of motion. No edema. SKIN: Warm, dry, no rash. NEURO: No focal deficits. Alert and oriented x3. PSYCH: Normal mood and affect. Course Course Emergency Course: This is a 47-year-old female who presented for evaluation of urinary symptoms. She has leukocytes present. Will send urine for culture. Start macrobid. Increase hydration. Follow up with primary provider. Go to the ER for worsening symptoms. Pt in agreement with plan of care. Level of Care: Express Care Visit Vital Signs Vital signs: Vital Signs Temperature 36.7 C 0
== END 2023-02-06 15:45 | disposition home or self-care (01) ==
PROVIDERS: Emergency Provider Nurse Practitioner
DX: N39.0 Urinary tract infection, site not specified (principal); G40.909 Epilepsy, unspecified, not intractable, without status epilepticus
CPT/HCPCS: 81003; 87086; 99213; G0463

== ENCOUNTER 2023-04-03 14:02 | Emergency (ER) | payer OTHER, SELFPAY ==
[2023-04-03 14:07] VITALS: BP 94/59; PULSE 69; RESP 16; TEMP 36.5; O2SAT 98
[2023-04-03 14:13] VITALS: BP 94/59; PULSE 69; RESP 16; TEMP 36.5; O2SAT 98
--- NOTE | 2023-04-03 14:22 | ED.FEMALEGU ---
HPI - Female Genitourinary General Chief complaint: Urogenital-Female Stated complaint: Urinary Problem History of Present Illness HPI Narrative: patient presents with urinary urgency and burning with urination. no pelvic pain no back pain no flank pain no gross hematuria, no abdominal pain and no pelvic pain. no concern for std. Related Data Home Medications Medication Instructions Recorded Confirmed divalproex 500 mg tablet,delayed 500 mg PO BID 12/28/20 11/20/22 release fluoxetine 20 mg capsule 20 mg PO DAILY 12/28/20 11/20/22 ergocalciferol (vitamin D2) 1,250 1,250 mcg PO WEEKLY 05/27/21 11/20/22 mcg (50,000 unit) capsule gabapentin 300 mg capsule 600 mg PO HS 05/27/21 11/20/22 pantoprazole 40 mg tablet,delayed 40 mg PO DAILY 05/27/21 11/20/22 release topiramate 25 mg tablet 25 mg PO DAILY 05/27/21 11/20/22 bupropion HCl 300 mg 24 hr tablet, 150 mg PO DAILY 01/12/22 11/20/22 extended release escitalopram oxalate 10 mg tablet 10 mg PO DAILY 01/12/22 11/20/22 valacyclovir 500 mg tablet mg 04/03/23 Allergies Allergy/AdvReac Type Severity Reaction Status Date / Time Sulfa (Sulfonamide Allergy Severe Anaphylaxis Verified 11/20/22 16:38 Antibiotics) Review of Systems Review of Systems: CONSTITUTIONAL: Denies fever, chills, or sweats. EYES: Denies visual changes, redness, or discharge. ENT: Denies rhinorrhea, congestion, sore throat, or otalgia. CARDIOVASCULAR: Denies chest pain, palpitations, or edema. RESPIRATORY: Denies cough or dyspnea. GASTROINTESTINAL: Denies abdominal pain, nausea, vomiting, or diarrhea. GENITOURINARY: Denies dysuria or hematuria. SKIN: Denies rash or itching. MUSCULOSKELETAL: Denies back pain, joint pain, or myalgia. NEUROLOGIC: Denies headache, numbness, or weakness. PSYCHIATRIC: Denies anxiety or depression. [facility] Past Medical History Medical History Epilepsy Surgical History Surgical History No significant past surgical history Family History Family History Mother Family history non-contributory Social History Social History Smoking status: Never smoker Alcohol intake: never Substance use: never Living arrangements: with family Occupation/Education: occupation Gender identity (if verbalized by the patient): Female Spiritual care concerns: No Comments At time of signature, agree with nursing past medical, surgical, social and family history. There is no relevant family history pertinent to the presenting complaint Exam Narrative: GENERAL: Well-appearing, well-nourished, and in no acute distress. HEAD: Normocephalic, atraumatic. EYES: PERRLA and EOMI. ENT: Nares clear, no rhinorrhea or epistaxis. Mucous membranes moist. NECK: Supple. CHEST: Clear to auscultation. No respiratory distress. HEART: Regular rate and rhythm. No murmur heard. Normal peripheral pulses. ABDOMEN: Soft, nontender, nondistended, normal active bowel sounds. EXTREMITIES: Normal range of motion. No edema. SKIN: Warm, dry, no rash. NEURO: No focal deficits. Alert and oriented x3. [place] Coma Scale Eye Opening: Spontaneous 4 [place] Coma Scale Motor: Obeys Commands 6 [place] Coma Scale Verbal: Oriented 5 Jay[place] Coma Scale Total 15 Course Course Level of Care: Express Care Visit Vital Signs Vital signs: Vital Signs Temperature 36.5 C 04/03/23 14:07 Pulse Rate 69 04/03/23 14:07 Respiratory Rate 16 04/03/23 14:07 Blood Pressure 94/59 L 04/03/23 14:07 Pulse Oximetry 98 04/03/23 14:07 Oxygen Delivery Room Air 04/03/23 14:07 Temperature 36.5 C 04/03/23 14:13 Pulse Rate 69 04/03/23 14:13 Respiratory Rate 16 04/03/23 14:13 Blood Pressure 94/59 L 04/03/23 14:13 Pulse Oximetry 98
== END 2023-04-03 14:30 | disposition home or self-care (01) ==
PROVIDERS: Emergency Provider Nurse Practitioner Family
DX: N39.0 Urinary tract infection, site not specified (principal); Z79.899 Other long term (current) drug therapy
CPT/HCPCS: 81003; 87077; 87086; 87186; 99213; G0463

== ENCOUNTER 2023-07-30 16:42 | Emergency (ER) | payer OTHER, SELFPAY ==
[2023-07-30 16:46] VITALS: BP 121/43; PULSE 87; RESP 18; TEMP 36.6; O2SAT 100
--- NOTE | 2023-07-30 16:59 | ED.FEMALEGU ---
HPI - Female Genitourinary General Chief complaint: Urogenital-Female Stated complaint: Urinary Problem Time Seen by Provider: 07/30/23 16:59 Source: patient Mode of arrival: ambulatory Limitations: no limitations History of Present Illness HPI Narrative: 48 yo F presents with c/o urinary frequency, urgency, low back pain, fatigue for 2 days. Reports similar symptoms with last UTI in may. Denies N/v/D. afebrile. All systems reviewed and negative except as noted above. Related Data Home Medications Medication Instructions Recorded Confirmed divalproex 500 mg tablet,delayed 500 mg PO BID 12/28/20 07/30/23 release ergocalciferol (vitamin D2) 1,250 1,250 mcg PO WEEKLY 05/27/21 07/30/23 mcg (50,000 unit) capsule gabapentin 300 mg capsule 600 mg PO HS 05/27/21 07/30/23 topiramate 25 mg tablet 25 mg PO DAILY 05/27/21 07/30/23 bupropion HCl 300 mg 24 hr tablet, 150 mg PO DAILY 01/12/22 07/30/23 extended release escitalopram oxalate 10 mg tablet 10 mg PO DAILY 01/12/22 07/30/23 valacyclovir 500 mg tablet 500 mg PO DAILY 04/03/23 07/30/23 diclofenac sodium 75 mg 75 mg PO BID 07/30/23 07/30/23 tablet,delayed release Allergies Allergy/AdvReac Type Severity Reaction Status Date / Time Sulfa (Sulfonamide Allergy Severe Anaphylaxis Verified 11/20/22 16:38 Antibiotics) Review of Systems Review of Systems: CONSTITUTIONAL: Denies fever, chills, or sweats. EYES: Denies visual changes, redness, or discharge. ENT: Denies rhinorrhea, congestion, sore throat, or otalgia. CARDIOVASCULAR: Denies chest pain, palpitations, or edema. RESPIRATORY: Denies cough or dyspnea. GASTROINTESTINAL: Denies abdominal pain, nausea, vomiting, or diarrhea. GENITOURINARY: Reports dysuria, urgency, frequency. Denies hematuria. SKIN: Denies rash or itching. MUSCULOSKELETAL: Denies back pain, joint pain, or myalgia. NEUROLOGIC: Denies headache, numbness, or weakness. PSYCHIATRIC: Denies anxiety or depression. All other systems reviewed are negative, except as documented in HPI. [facility] Past Medical History Medical History Epilepsy Surgical History Surgical History No significant past surgical history Family History Family History Mother Family history non-contributory Social History Social History Smoking status: Never smoker Alcohol intake: never Substance use: never Living arrangements: with family Occupation/Education: occupation Gender identity (if verbalized by the patient): Female Spiritual care concerns: No Comments At time of signature, agree with nursing past medical, surgical, social and family history. There is no relevant family history pertinent to the presenting complaint. Exam Narrative: GENERAL: This is a well-nourished, well-developed patient, in no apparent distress. HEAD: normocephalic, atraumatic. EYES: PERRL. Sclera clear/white. Vision is grossly intact. EARS: External ears normal NOSE: External nose normal NECK: Neck supple, non-tender without lymphadenopathy, masses or thyromegaly. CARDIOVASCULAR: Regular rate and rhythm without murmurs, gallops, or rubs. RESPIRATORY: Clear to auscultation. Breath sounds equal bilaterally. No wheezes, rales, or rhonchi. SKIN: warm, Dry, intact with no suspicious lesions or rash, good texture and turgor. NEURO: awake, alert, and oriented to person, place and time. There were no obvious focal neurologic abnormalities. EXTREMITIES: No joint tenderness, effusion, or edema noted. Course Course Level of Care: Express Care Visit Vital Signs Vital signs: Vital Signs Temperature 36.6 C 07/30/23 16:46 Pulse Rate 87 07/30/23 16:46 Respiratory Rate 18 07/30/23 16:46 Blood Pressure 121/43 L
== END 2023-07-30 17:10 | disposition home or self-care (01) ==
PROVIDERS: Emergency Provider Nurse Practitioner Family
DX: N39.0 Urinary tract infection, site not specified (principal); Z79.899 Other long term (current) drug therapy
CPT/HCPCS: 81003; 87086; 87088; 99213; G0463

== ENCOUNTER 2024-03-23 16:07 | Emergency (ER) | payer OTHER, SELFPAY ==
[2024-03-23 16:17] VITALS: BP 102/57; PULSE 66; RESP 16; TEMP 36.5; O2SAT 100
--- NOTE | 2024-03-23 16:31 | ECG_ITS ---
Test Date: 2024-03-23 16:35:16 Measurements Intervals [place] Rate: 63 P: 55 OK: 161 QRS: -64 QRSD: 99 T: 83 QT: 405 QTc: 416 Interpretive Statements SINUS RHYTHM INCOMPLETE RIGHT BUNDLE BRANCH BLOCK LEFT ANTERIOR FASCICULAR BLOCK BORDERLINE ST-T WAVE ABNORMALITY- HIGH LATERAL LEADS ABNORMAL ECG No previous ECG available for comparison Electronically Signed On 03-24-2024 06:34:49 CDT by David Fung D.O.
--- NOTE | 2024-03-23 16:31 | ED.CHESTPAIN ---
HPI - Chest Pain General Chief Complaint: Chest Pain Stated Complaint: Chest Pain Time Seen by Provider: 03/23/24 16:25 Source: patient, family, RN notes reviewed and old records reviewed Mode of arrival: ambulatory Limitations: no limitations History of Present Illness HPI narrative: 48 year old female who presents to [facility] care with complaints of 2 day duration of heaviness, constant pressure in her mid sternal area of chest with some radiation to her back and complaints of nausea. Patient reports that she does have abnormal heart valve not sure which one is absent one of the leaflets. Patient reports that she does have history of acid reflux and takes Omeprazole daily but doesn't feel like it is working anymore is belching. Color is pink denies any drug use or energy drink consumption, no tobacco use. MD complaint: chest pain and chest heaviness Onset (ago): day(s) (2) Pain location: other (mid sternal) Pain scale (0-10): 10 Quality: heaviness and other (pressure) Treatment prior to arrival: other (omeprazole) Related Data Home Medications Medication Instructions Recorded Confirmed divalproex 500 mg tablet,delayed 500 mg PO BID 12/28/20 03/23/24 release ergocalciferol (vitamin D2) 1,250 1,250 mcg PO WEEKLY 05/27/21 03/23/24 mcg (50,000 unit) capsule bupropion HCl 300 mg 24 hr tablet, 150 mg PO DAILY 01/12/22 03/23/24 extended release escitalopram oxalate 10 mg tablet 10 mg PO DAILY 01/12/22 03/23/24 valacyclovir 500 mg tablet 500 mg PO DAILY 04/03/23 03/23/24 diclofenac sodium 75 mg 75 mg PO BID 07/30/23 03/23/24 tablet,delayed release Allergies Allergy/AdvReac Type Severity Reaction Status Date / Time Sulfa (Sulfonamide Allergy Severe Anaphylaxis Verified 11/20/22 16:38 Antibiotics) Review of Systems Review of Systems: CONSTITUTIONAL: Denies fever, chills, or sweats. EYES: Denies visual changes, redness, or discharge. ENT: Denies rhinorrhea, congestion, sore throat, or otalgia. CARDIOVASCULAR: Reports mid sternal chest pain,no palpitations, or edema. RESPIRATORY: Denies cough or dyspnea. GASTROINTESTINAL: Denies abdominal pain,positive nausea, no vomiting, or diarrhea,positive .belching GENITOURINARY: Denies dysuria or hematuria. SKIN: Denies rash or itching. MUSCULOSKELETAL: intermittent radiation to mid back,no joint pain, or myalgia. NEUROLOGIC: Denies headache, numbness, or weakness. PSYCHIATRIC: Positive for history of anxiety or depression. All systems reviewed & are unremarkable except as noted in HPI and below PMFSH Past Medical History Medical History Anxiety and depression Epilepsy GERD (gastroesophageal reflux disease) Surgical History Surgical History Previous section x3 Family History Family History Mother Family history non-contributory Social History Social History Smoking status: Never smoker Alcohol intake: never Substance use: never Living arrangements: with family Occupation/Education: occupation Gender identity (if verbalized by the patient): Female Spiritual care concerns: No Comments At time of signature, agree with nursing past medical, surgical, social and family history. There is no relevant family history pertinent to the presenting complaint Exam Narrative: GENERAL: Well-appearing, well-nourished, and in stated acute distress. HEAD: Normocephalic, atraumatic. EYES: PERRLA and EOMI. ENT: Nares clear, no rhinorrhea or epistaxis. Mucous membranes moist.TM's normal throat pink with no swelling NECK: Supple.no lymphadenopathy CHEST: Clear to auscultation. No respiratory distress.SAO2 100% on room air HEART: Regular rate and rhythm. No murmur heard. Normal peripheral pulses.reports mid sternal chest pressure and heaviness some radiation to back with nausea and belching noted ABDOMEN: Soft, nontender, nondistended, normal active bowel sounds.no emesis EXTREMITIES: Normal range of motion. No edema. SKIN: Warm, dry, no rash. NEURO: No focal deficits. Alert and oriented x3.anxious Course Course Emergency Course: Patient is aware of diagnosis, understands and agrees to treatment plan.? Anticipatory guidance given.? Patient agrees to follow-up as directed and is aware of reasons to seek care at the emergency department. Portions of this record may have been created with voice recognition software Level of Care: Express Care Visit Vital Signs Vital signs: Vital Signs Temperature 36.5 C 03/23/24 16:17 Pulse Rate 66 03/23/24 16:17 Respiratory Rate 16 03/23/24 16:17 Blood Pressure 102/57 L 03/23/24 16:17 Pulse Oximetry 100 03/23/24 16:17 Oxygen Delivery Room Air 03/23/24 16:17 Temperature 36.5 C 03/23/24 16:17 Pulse Rate 66 03/23/24 16:17 Respiratory Rate 16 03/23/24 16:17 Blood Pressure 102/57 L 03/23/24 16:17 Pulse Oximetry 100 03/23/24 16:17 Oxygen Delivery Room Air 03/23/24 16:17 Reviewed Transfer Transfered to: [facility] Transportation: Other (private car with friend to ED at [facility], refused ambulance transfer) Transfer rationale: chest pain need higher level of care and evaluation Accepting physician: Dr Sinha Transfer comments: Transfer per private car with friend to [facility] refused ambulance transfer MDM - Chest Pain MDM Narrative Medical decision making narrative: 1650Call placed to ED at [facility], with condition update, VS PMH reviewed with charge nurse Ger with Dr Sinha accepting physician. Differential Diagnosis Differential diagnosis: Likely atypical chest pain, costochondritis, chest pain, biliary colic and other (gerd ) Medical Records Data Attestation: I reviewed the patient's medical records. ECG Data EKG #1: Attestation: I personally reviewed and interpreted this ECG as follows: ECG completion date: 03/23/24 ECG completion time: 16:35 Prior ECG tracings: not available for review Ischemic changes: non-specific ST-T wave changes (lateral leads borderline) Interpretation: Sinus rhythm rate 63, Pr 161 ms QRS 99ms, QT 405 EKG Interpretation: normal rate, sinus rhythm, RBBB (incomplete) and other (left anterior fasicular block,borderline ST-T wave abnormality lateral leads) Critical Care Time Critical Care Time Critical Care Time: No Discharge Plan Discharge Clinical Impression: Chest pain Qualifiers: Chest pain type: unspecified Qualified Code(s): R07.9 - Chest pain, unspecified Patient Disposition: Acute Care Hospital Condition: Stable Prescriptions: No Action divalproex 500 mg tablet,delayed release (DR/EC) 500 mg PO BID ergocalciferol (vitamin D2) 1,250 mcg (50,000 unit) capsule 1,250 mcg PO WEEKLY bupropion HCl 300 mg tablet extended release 24 hr 150 mg PO DAILY escitalopram oxalate 10 mg tablet 10 mg PO DAILY valacyclovir 500 mg tablet 500 mg PO DAILY diclofenac sodium 75 mg tablet,delayed release (DR/EC) 75 mg PO BID fluconazole 150 mg tablet 150 mg PO DAILY Qty: 1 0RF Follow-up/Referrals: PHYSICIAN NOT ON STAFF,NONSTAFF [Primary Care Provider] - Time of Disposition: 16:59 Quality [place] Coma Scale Eyes: Open Verbal: Oriented and Alert Motor: Follows Commands [place] Coma Total Score: 15
== END 2024-03-23 16:59 | disposition short-term general hospital (02) ==
LOC: EXPBETH 16:09
PROVIDERS: Emergency Provider Registered Nurse
DX: R07.9 Chest pain, unspecified (principal); G40.909 Epilepsy, unspecified, not intractable, without status epilepticus
CPT/HCPCS: 93005; 99213; G0463

== ENCOUNTER 2024-10-13 18:44 | Emergency (ER) | payer OTHER, SELFPAY ==
--- OUTSIDE RECORDS SUMMARY | 2024-10-13 18:46 | XMS_ITS | Clinical Summary ---
Author Organization [facility] Address [address] [address] Care Team Providers Care Golf Course Laborer Name Role Phone Delta Dinh MD Primary Care Provider [phone] Source Comments [facility],non-owned Affiliates and Associated Physician Practices is amultiple site organization consisting of ambulatory clinics and hospital sitesin [place], [place], [place] and [place]. This disclosure is being madepursuant to the Care Everywhere program and may not contain all information available regarding this patient. Last updated 18.[facility] Allergies Active Allergy Reactions Criticality Noted Date Comments Sulfa Drugs Anaphylaxis High 12/11/2015 Medications * Be aware that medications may not be up to date on this document. Alwaysverify current medications with the patient. acyclovir (ZOVIRAX) 400 MG tablet TK 1 T PO TID FOR 10 DAYS 0 Active D3-50 1.25 MG (04726 UT) TK 1 C PO Q WEEK 0 Active cyclobenzaprine (FLEXERIL) 5 MG tablet TK 1 T PO Q 8 H PRN 0 Active diclofenac sodium EC (VOLTAREN) 75 MG tablet TK 1 T PO BID WF 0 Active divalproex ER 24hr (DEPAKOTE ER) 500 MG tablet TAKE 1 TABLET BY MOUTH TWICE DAILY 0 Active FLUoxetine (PROZAC) 20 MG capsule TK 1 C PO D 0 Active levothyroxine (SYNTHROID) 50 MCG tablet Take 50 mcg by mouth once daily Active lidocaine viscous (XYLOCAINE) 2 % viscous solution 9 Active XULANE 150-35 MCG/24HR patch MODESTA 1 PA EXT TO THE SKIN Q WK 0 Active omeprazole (PRILOSEC) 40 MG capsule Take 40 mg by mouth once daily 9 Active traMADol (ULTRAM) 50 MG tablet Take 50 mg by mouth every 6 hours 9 Active ibuprofen (MOTRIN) 600 MG tablet Take 1 tablet by mouth every 6 hours as needed for Pain 40 tablet 0 Active cyclobenzaprine (FLEXERIL) 10 MG tablet Take 1 tablet by mouth at bedtime 30 tablet 1 0 Active Additional Information Patient not taking.Reported on 01/04/2020 nitrofurantoin monohyd macro crystals (MACROBID) 100 MG capsule Take 100 mg by mouth 2 times daily with morning and evening meal Active Social History Tobacco Use Types Packs/Day Years Used Date Smoking Tobacco: Never Assessed Comments Unknown Sex and Gender Information Value Date Recorded Sex Assigned at Not on file 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 Gender Identity Not on file Sexual Orientation Not on file Last Filed Vital Signs Vital Sign Reading Time Taken Comments Blood Pressure 120/77 01/04/2020 2:25 PM CDT Pulse 88 01/04/2020 2:25 PM CDT Temperature 36.2 C (97.2 F) 01/04/2020 2:25 PM CDT Respiratory Rate - - Oxygen Saturation - - Inhaled Oxygen Concentration - - Weight 58.1 kg (128 lb) 01/04/2020 2:25 PM CDT Height - - Body Mass Index - - Plan of Treatment Health Maintenance Due Date Last Done Comments COLOGUARD (AGES 45-75) - COLON CA SCREENING 1973 COLON MONITORING 1973 COLONOSCOPY - COLON CA SCREENING 1973 CT COLONOGRAPHY - COLON CA SCREENING 1973 Colorectal Cancer Screening 1973 FIT - COLON CA SCREENING 1973 FLEX SIG - COLON CA SCREENING 1973 LIPID TESTING 1973 MAMMOGRAM 1973 HIV SCREENING 1988 HEPATITIS C SCREENING 06/28/1991 DTAP/TDAP/TD VACCINES (1 - Tdap) 1992 HEPATITIS B VACCINE (1 of 3 - 19+ 3-dose series) 1992 PNEUMOCOCCAL VACCINE 50+ (1 of 1 - PCV) 2023 ZOSTER VACCINE (1 of 2) 2023 COVID-19 VACCINE (1 - 2023- season) 2024 DEPRESSION SCREENING 05/24/2024 INFLUENZA VACCINE (Season Ended) 2025 03/23/2018, 06/25/2017, 06/24/2017, Additional history exists HIB VACCINE Aged Out No longer eligi ble based on patient's age to complete this topic HPV VACCINE Aged Out No longer eligi ble based on patient's age to complete this topic MENINGOCOCCAL (Group B) VACCINE SHARED DECISION-MAKING Aged Out No longer eligible based on patient's age to complete this topic MENINGOCOCCAL GROUPS A/C/Y/W VACCINE Aged Out No longer eligible based on patient's age to complete this topic Insurance [place] [employer] [facility] [place] [employer] [facility] Care Teams Golf Course Laborer Relationship Specialty Start Date End Date Delta Dinh MD [address] [place] [address] PCP - General 01/11/20
--- OUTSIDE RECORDS SUMMARY | 2024-10-13 18:46 | XMS_ITS | Referral Summary ---
Author Organization [facility] ada Address [address] [place] [address] Care Team Providers Care Bridge Rigger Name Role Phone Delta Dinh MD Primary Care Provider [phone] Encounters Date Type Department Care Team Description 09/13/2024 Results Follow-Up [facility] Emergency Department [address] [place] [address] Popeye Ellis PA Urine culture Urine 09/12/2024 12:22 AM CDT - 09/12/2024 1:54 AM CDT Emergency [facility] Emergency Department [address] [place] [address] Chelsey Perkins MD Discharge Disposition: Left without being seen from Last 3 Months Allergies Active Allergy Reactions Criticality Noted Date Comments Sulfa (Sulfonamide Antibiotics) Other (See comments),Anaphylaxis High paralysis Sulfasalazine Anaphylaxis High 12/11/2015 Medications levothyroxine (SYNTHROID, LEVOTHROID) 50 mcg tabletIndications: hypothyroidism Take 50 mcg by mouth daily. Active divalproex DR (DEPAKOTE) 500 mg EC tablet Take 2 tablets (1,000 mg total) by mouth 2 (two) times a day. 30 tablet 06/21/19 18 Active FLUoxetine (PROzac) 20 mg capsule TK 1 C PO D 04/20/20 20 Active gabapentin (NEURONTIN) 300 mg capsule TK 1 TO 2 CS PO QHS 04/20/20 20 Active acyclovir (ZOVIRAX) 400 mg tablet TK 1 T PO TID FOR 10 DAYS 12/09/19 20 Active cholecalciferol (VITAMIN D-3) 50,000 unit capsule TK 1 C PO Q WEEK 08/15/19 20 Active cyclobenzaprine (FLEXERIL) 10 mg tablet Take 10 mg by mouth nightly 12/14/[address] (VOLTAREN) 75 mg EC tablet 04/14/20 20 Active diphenoxylate-atro pine (LOMOTIL) 2.5-0.025 mg per tabletIndications: diarrhea Take 1 tablet by mouth 4 (four) times a day as needed for diarrhea 10 tablet 02/23/20 Active Additional Information Patient not taking.Reported on 10/04/2021 dicyclomine (BENTYL) 20 mg tablet Take 1 tablet (20 mg total) by mouth every 6 (six) hours as needed (abdominal cramping) 120 tablet 5 04/25/20 Active Additional Information Patient not taking.Reported on 07/07/[address] (PROTONIX) 40 mg EC tablet Take 1 tablet (40 mg total) by mouth daily 90 tablet 3 04/25/20 Active topiramate (TOPAMAX) 25 mg tablet Take 25 mg by mouth 2 (two) times a day 05/04/20 Active benzonatate (TESSALON) 100 mg capsuleIndications :Cough Take 1 capsule (100 mg total) by mouth 3 (three) times a day as needed for cough 15 capsule 09/06/19 Active Additional Information Patient not taking.Reported on 10/04/2021 ibuprofen (ADVIL,MOTRIN) 600 mg tablet Take 1 tablet (600 mg total) by mouth 3 (three) times a day Take with food. 30 tablet 09/06/19 22 Active valACYclovir (VALTREX) 1 gram tablet 10/03/19 22 Active fluconazole (DIFLUCAN) 150 mg tablet TAKE 1 TABLET BY MOUTH DAILY FOR 1 DOSE. MAY REPEAT---2 DAYS LATER OR 1 WEEK LATER NEEDED 06/27/19 22 Active buPROPion XL (WELLBUTRIN XL) 150 mg 24 hr tablet Take 150 mg by mouth daily 07/08/19 22 Active ondansetron ODT (ZOFRAN-ODT) 8 mg disintegrating tablet Take 1 tablet (8 mg total) by mouth every 8 (eight) hours as needed for nausea or vomiting 30 tablet 04/15/20 23 Active Active Problems Problem Noted Date Diagnosed Date Nausea and vomiting 04/25/2021 Epigastric pain 04/25/2021 Dyspepsia 04/25/2021 Chest pain 04/25/2021 Overview (04/25/2021): Added automatically from request for surgery [id number] Mixed irritable bowel syndrome 04/25/2021 Overview (04/25/2021): Added automatically from request for surgery [id number] Migraine 04/25/2021 Heart murmur 04/25/2021 Valvular heart disease 04/25/2021 Painless rectal bleeding 12/05/2019 Overview (12/05/2019): Added automatically from request for surgery [id number] Diarrhea 12/05/2019 Overview (12/05/2019): Added automatically from request for surgery [id number] Sprain of interphalangeal joint of right little finger 06/13/2019 Left shoulder strain, initial encounter 06/13/19 20 Urinary tract infection in female 06/13/2019 Laceration of labia minora 02/24/2019 Dentalgia 02/07/2019 TMJ (temporomandibular joint disorder) 9 Cervicitis 05/25/2018 Pelvic pain in female 05/25/2018 Menorrhagia with regular cycle 05/25/2018 Elevated TSH 05/25/2018 Bacteriuria 05/25/2018 Myoclonic jerking 06/20/2017 Assessment & Plan (06/20/2017 10:04 AM STATION INSTALLER AND REPAIRER): Patient has tremors generalized and myoclonic jerks of her lower extremities this is most likely secondary to toxic levels of valproic acid. Along with tremors and myoclonic jerks patient also has other complaints: Blurry vision at times, dyspnea, somnolence, generalized weakness, poor appetite, weight loss. she also has thrombocytopenia which is new. I suspect this all related to a toxic level of valproic acid. Will hold the medicine for today, neurology consultation pending. 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 Normal ranges are between 50 and 100. Will hold valproic acid today. Will appreciate Neurology recommendation about further does. Will get a valproic acid level again, will get chest x-ray due to dyspnea. Non-refractory epilepsy 10/07/2013 Overview (08/27/2016): EPILEP NOS W/O INTR EPIL Depression 10/07/2013 Overview (08/27/2016): DEPRESSIVE DISORDER NEC Gastroesophageal reflux disease 10/07/2013 Overview (08/27/2016): ESOPHAGEAL REFLUX Genital herpes simplex 10/07/2013 Overview (08/28/2016): Genital Herpes Seizure 06/19/2013 Overview (08/28/2016): Seizure / Convulsions Chronic migraine 04/04/2013 Overview (08/27/2016): CH MGR WO AR WO NT WO ST Assessment & Plan (06/20/2017 10:05 AM STATION INSTALLER AND REPAIRER): This is not very severe. Currently has no exacerbation. Disorientation Immunizations Immunization Administration Dates Next Due Influenza Virus Vaccine Trivalent Mdv 03/07/2008 Influenza, Quadrivalent, Spl it, Preservative Free, Intramuscular 03/23/2018,05/28/2016 Influenza, Trivalent, IM (MDV) 06/25/2017,2007 Influenza, Trivalent, Preservative Free, Intramu scular 06/24/2017 Tdap 06/17/2018 Social History Tobacco Use Types Packs/Day Years Used Date Smoking Tobacco: Never Smokeless Tobacco: Never Alcohol Use Standard Drinks/Week Comments No 0 (1 standard drink = 0.6 oz pur e alcohol) Personal Safety Answer Date Recorded Have you ever been in or are you currently in a harmful physical or emotional relationship or is someone making you feel afraid or unsafe? Denies 09/12/2024 Comments No Sex and Gender Information Value Date Recorded Sex Assigned at Not on file Legal Sex Female 12:10 AM STATION INSTALLER AND REPAIRER Gender Identity Not on file Sexual Orientation Not on file Last Filed Vital Signs Vital Sign Reading Time Taken Comments Blood Pressure 92/54 09/12/2024 1:05 AM CDT Pulse 54 09/12/2024 1:05 AM CDT Temperature 36.6 C (97.9 F) 09/11/2024 8:53 PM CDT Respiratory Rate 16 09/12/2024 1:05 AM CDT Oxygen Saturation 98% 09/12/2024 1:05 AM CDT Inhaled Oxygen Concentration - - Weight 56.7 kg (125 lb) 09/11/2024 8:53 PM CDT Height 157.5 cm (5' 2 ) 09/11/2024 8:53 PM CDT Body Mass Index 22.86 09/11/2024 8:53 PM CDT Plan of Treatment Not on file Procedures Procedure Name Priority Date/Time Associated Diagnosis Comments POCT HCG, URINE Routine 09/12/2024 12:46 AM CDT URINALYSIS, MICROSCOPIC ONLY STAT 09/12/2024 12:45 AM CDT URINE CULTURE STAT 09/12/2024 12:45 AM CDT URINALYSIS AND REFLEX TO MICROSCOPIC AND CULTURE STAT 09/12/2024 12:45 AM CDT EGFR STAT 09/11/2024 9:52 PM CDT DIFFERENTIAL AUTO STAT 09/11/2024 9:5 2 PM CDT COMPREHENSIVE METABOLIC PANEL STAT 09/11/2024 9:52 PM CDT CBC WITH AUTO DIFFERENTIAL STAT 09/11/2024 9:52 PM CDT ECG 12-LEAD STAT 09/11/2024 8:57 PM CDT COLONOSCOPY 06/11/2021 9:56 AM STATION INSTALLER AND REPAIRER from Last 3 Months or Most Recently Relevant to Health Maintenance Results * POCT hCG, urine (09/12/2024 12:46 AM CDT) HCG, ur, POC Negative Negative Lot Number [id number] QC Backgroud Clear Acceptable QC Control Line Acceptable Urine 09/12/2024 12:4 6 AM CDT us Chelsey Perkins MD POINT OF CARE TEST ORDERABLES Fi nal Result * (ABNORMAL) Urinalysis reflex to microscopic and culture Urine (09/12/2024 12:45 AM CDT) Color, ur Yellow Yellow Clarity, ur Clear Clear [facility] ([facility]) Specific gravity, ur 1.019 1.003 - 1.030 [facility] ([facility]) pH, urine 8.5 [facility] ([facility]) Comment: Interpretive Data U rine pH is affected by diet, medications, systemic acid-base disturbances, and renal tubular function. pH may affect urinary stone formation. For example, urine pH below 6.0 may help reduce the tendency for calcium phosphate stones and pH greater than 6.0 may reduce the tendency for uric acid stone formation. Source: [facility] [employer] Current Interpretive Data was last revised on 2017 Protein, ur ql Negative Negative [facility] ([facility]) Glucose, ur ql Negative Negative [facility] ([facility]) Ketones, ur Negative Negative [facility] ([facility]) Bilirubin, ur Negative Negative [facility] ([facility]) Blood, ur Negative Negative [facility] ([facility]) Urobilinogen, ur <2.0 <2.0 mg/dL [facility] ([facility]) Nitrite, ur Negative Negative [facility] ([facility]) Leukocyte esterase, ur 2+(A) Negative [facility] ([facility]) UA reflex comment Reflex to microscopic UA will be performed. [facility] ([facility]) Urine 09/12/2024 12:4 5 AM CDT 09/12/2024 12:48 AM CDT us Chelsey Perkins MD LAB MICROBIOLOGY - GENERAL ORDER JOHANNY Final Result [facility] ([place]) 1 [facility] Department [place] [address] * (ABNORMAL) Urinalysis, microscopic only (09/12/2024 12:45 AM CDT) WBC, ur 11-20(A) 0 - 5 /HPF RBC, ur 0-2 0 - 2 /HPF [facility] ([place]) Epithelial cells, squamous, ur 1-5 0 - 5 /HPF [facility] (ELDER) Culture Reflex Comment Reflex to urine culture will be performed. [facility] ([place]) Urine 09/12/2024 12:4 5 AM CDT 09/12/2024 12:48 AM CDT us Chelsey Perkins MD LAB URINE ORDERABLES Final Resul t Performing Organization Address City/[facility]/ZIP Co de Phone Number [facility] ([place]) [address] [place] [address] [place] [address] * Urine culture Urine (09/12/2024 12:45 AM CDT) Report Final Report: Less than 100,000 colonies/mL (clinically insignificant growth based on current clinical standards) Comment:Testing performed by : [facility], [address] [place] [address] Organism (CLINICALLY INSIGNIFICANT GROWTH [facility] ([place]) Urine 09/12/2024 12:4 5 AM CDT 09/12/2024 4:53 AM CDT Narrative [facility] ([place]) - 09/13/2024 7:49 AM CDT Urine culture reflexed based upon urinalysis results. Testing performed by [facility] Microbiology Laboratory ([phone]) us Chelsey Perkins MD LAB MICROBIOLOGY - GENERAL ORDER JOHANNY Final Result [facility] ([place]) 1 [facility] [place] [address] * eGFR (09/11/2024 9:52 PM CDT) eGFR 87 >=60 mL/min/1. 73 m2 Comment: Interpretive Data Reference Interval Normal >/= 90 mL/min/1.73m2 Mildly decreased* 60 - 89 mL/min/1.73m2 Mildly to moderately decreased 45 - 59 mL/min/1.73m2 Moderately to severely decreased 30 - 44 mL/min/1.73m2 Severely decreased 15 - 29 mL/min/1.73m2 Kidney Failure < 15 mL/min/1.73m2 *Relative to young adult level Estimated glomerular filtration rate is determined by the 2020 CKD-EPI equation recommended by the National Kidney Foundation (A Unifying Approach to GFR Estimation: Recommendations of the NKF-ASK Task Force on Reassessing the Inclusion of Race in Diagnosing Kidney Disease, JASN 2020). The CKD-EPI equation should not be used for patients with unstable renal function and has not been validated in children and those over 70. Current interpretive data was last reviewed 2021. Blood 09/11/2024 9:52 PM CDT 09/11/2024 9:56 PM CDT us Chelsey Perkins MD LAB BLOOD ORDERABLES Final Resul t [facility] ([place]) 1 [facility] Department of Laboratories [place], [place] [id number] * Differential, auto (09/11/2024 9:52 PM CDT) Neutrophil abs 4.79 1.50 - 6.50 K/cumm Imm gran abs 0.03 0.00 - 0.10 K/cumm [facility] ([facility]) Lymphocyte abs 2.98 0.80 - 3.30 K/cumm [facility] ([place]) Monocyte abs 0.55 0.20 - 0.80 K/cumm [facility] ([facility]) Eosinophil abs 0.46 0.00 - 0.50 K/cumm [facility] ([facility]) Basophil abs 0.06 0.00 - 0.10 K/cumm [facility] ([facility]) Neutrophil pct 54.0 % [facility] ([place]) Comment: Interpretive Data Percent cell count reference ranges are not reported, since discordance with absolute values may lead to misinterpretation of CBC data. Current Interpretive Data was last revised on 2017. Imm gran pct 0.3 % [facility] ([place]) Comment: Interpretive Data Percent cell count reference ranges are not reported, since discordance with absolute values may lead to misinterpretation of CBC data. Current Interpretive Data was last revised on 2017. Lymphocyte pct 33.6 % [facility] ([facility]) Comment: Interpretive Data Percent cell count reference ranges are not reported, since discordance with absolute values may lead to misinterpretation of CBC data. Current Interpretive Data was last revised on 2017. Monocyte pct 6.2 % [facility] ([facility]) Comment: Interpretive Data Percent cell count reference ranges are not reported, since discordance with absolute values may lead to misinterpretation of CBC data. Current Interpretive Data was last revised on 2017. Eosinophil pct 5.2 % [facility] ([facility]) Comment: Interpretive Data Percent cell count reference ranges are not reported, since discordance with absolute values may lead to misinterpretation of CBC data. Current Interpretive Data was last revised on 2017. Basophil pct 0.7 % [facility] ([facility]) Comment: Interpretive Data Percent cell count reference ranges are not reported, since discordance with absolute values may lead to misinterpretation of CBC data. Current Interpretive Data was last revised on 2017. Blood 09/11/2024 9:52 PM CDT 09/11/2024 9:56 PM CDT us Chelsey Perkins MD LAB BLOOD ORDERABLES Final Resul t [facility] ([place]) 1 [facility] Department [place] [address] * CBC with auto differential (09/11/2024 9:52 PM CDT) WBC 8.87 3.80 - 9.90 K/cumm Hgb 13.0 11.9 - 15.5 g/dL [facility] ([facility]) Hct 39.7 35.6 - 45.5 % [facility] ([facility]) Plt 270 150 - 400 K/cumm [facility] ([facility]) MPV 9.7 9.1 - 12.3 fL [facility] RBC 4.27 3.90 - 5.20 M/cumm [facility] MCV 93.0 81.3 - 96.4 fL [facility] ([facility]) MCH 30.4 27.1 - 33.3 pg [facility] MCHC 32.7 32.3 - 35.7 g/dL [facility] RDW CV 13.4 11.1 - 14.9 % [facility] ([facility]) RDW SD 45.2 35.7 - 48.1 fL [facility] ([facility]) NRBC abs 0.00 0.00 - 0.01 K/cumm [facility] Blood Venous blood specimen / Unknown 09/11/2024 9:52 PM CDT 09/11/2024 9:56 PM CDT us Chelsey Perkins MD LAB BLOOD ORDERABLES Final Resul t [facility] ([facility]) 1 [facility] Department of Laboratories [place], [place] [id number] * (ABNORMAL) Comprehensive metabolic panel (09/11/2024 9:52 PM CDT) Sodium 139 135 - 145 mmol/L Potassium, pl 4.5 3.3 - 4.9 mmol/L [facility] ([facility]) Chloride 98 97 - 110 mmol/L [facility]) CO2 29 22 - 32 mmol/L [facility] Anion gap 12 2 - 15 mmol/L [facility] BUN 14 6 - 25 mg/dL [facility] ([facility]) Creatinine 0.82 0.60 - 1.10 mg/dL [facility] ([facility]) Glucose 95 70 - 199 mg/dL [facility] Comment: Interpretive Data Fasting glucose >/= 126 mg/dl is diagnostic for diabetes. Fasting is defined as no caloric intake for at least 8 hours. Fasting glucose between 100 mg/dl to 125 mg/dl is diagnostic of prediabetes. In a patient with classic symptoms of hyperglycemia or hyperglycemic crisis, a random glucose >/= 200 mg/dl is diagnostic for diabetes. In the absence of unequivocal hyperglycemia, results should be confirmed by repeat testing. The classification and Diagnosis of Diabetes Diabetes Care 2021; 46: S19-S40. Current interpretive data was last revised 2022. Calcium 10.5(H) 8.5 - 10.3 mg/dL [facility] ([facility]) Bilirubin, total <0.2 0.1 - 1.2 mg/dL [facility] ([facility]) Protein, pl 7.7 6.5 - 8.5 g/dL [facility] ([facility]) Albumin 4.5 3.5 - 5.0 g/dL [facility] ([facility]) Alk phos 77 40 - 130 Units/L [facility] ([facility]) ALT 9 7 - 45 Units/L [facility] ([facility]) AST 18 10 - 45 Units/L [facility] ([facility]) Comment:Slightly Hemolyzed S pecimen Blood Venous blood specimen / Unknown 09/11/2024 9:52 PM CDT 09/11/2024 9:56 PM CDT us Chelsey Perkins MD LAB BLOOD ORDERABLES Final Resul t [facility] ([facility]) 1 [facility] Department [place] [address] * ECG 12 lead (09/11/2024 8:57 PM CDT) 09/11/2024 8:57 PM CDT Narrative [facility] - 09/12/2024 6:51 AM CDT Vent Rate: 71 bpm RR Interval: 843 msec IN Interval: 147 msec QRS Duration: 96 msec QT Interval: 381 msec QTC Interval: 403 msec P-R-T [place]: 51 - -46 - 79 degrees IMPRESSION: SINUS RHYTHM WITH SINUS ARRHYTHMIA PATTERN CONSISTENT WITH PULMONARY DISEASE INCOMPLETE RIGHT BUNDLE BRANCH BLOCK [90+ ms QRS DURATION, TERMINAL R IN V1/V2, 40+ ms S IN I/aVL/V4/V5/V6] LEFT ANTERIOR FASCICULAR BLOCK [QRS AXIS <= -45, QR IN I, RS IN II] NONSPECIFIC T-WAVE ABNORMALITY ABNORMAL ECG Compared to prior EKG, complete right bundle branch block pattern is new Electronically Signed By: Alton Torres MD us Chelsey Perkins MD ECG ORDERABLES Final Result [facility] * COLONOSCOPY (06/11/2021 9:56 AM STATION INSTALLER AND REPAIRER) Anatomical Region Laterality Modality Other Narrative Procedure Note Kira Simon MD - 06/11/2021 9:56 AM CST [facility] Patient Name: Elisa Ramirez Procedure Date: 06/11/2021 9:56 AM Date of : 1975 Admit Type: Outpatient Age: 45 Gender: Female Attending MD: Kira Simon M.D. Room: [facility] ENDOSCOPY ROOM 1 Note Status: Finalized Patient Profile: This is a 45 year old female. Patient complains of chronic diarrhea. No family history of coloncancer Procedure: Colonoscopy Indications: Last colonoscopy: September 2010, Chronic diarrhea Referring MD: Delta Dinh MD Providers: Kira Simon M.D. Impression: - The entire examined colon is normal. Randombiopsy performed. - Internal hemorrhoids. - No specimens collected. Recommendation: - Await pathology results. - Repeat colonoscopy in 10 years for screening purposes. - Return to GI office as previously scheduled. Medicines: Monitored Anesthesia Care Complications: No immediate complications. Estimated Blood Loss: Estimated blood loss: none. Procedure: Pre-Anesthesia Assessment: - Prior to the procedure, a History and Physicalwas performed, and patient medications and allergieswere reviewed. The patient's tolerance of previous anesthesia was also reviewed. The risks andbenefits of the procedure and the sedation options and risks were discussed with the patient. All questions were answered, and informed consent was obtained. Prior Anticoagulants: The patient has taken no previous anticoagulant or antiplatelet agents. ASA Grade Assessment: II - A patient with mild systemicdisease. After reviewing the risks and benefits, the patient was deemed in satisfactory condition to undergo the procedure. The benefits, risks and alternatives of theprocedure and sedation were discussed and informed consentwas obtained. All questions were answered. Please referto the signed informed consent document in the medical record. The scope was passed under direct vision.The Pediatric Colonoscope [id number]-H190L [id number] was introduced through the anus and advanced to the the cecum, identified by appendiceal orifice andileocecal valve. The bowel preparation used was Miralax via split dose instruction. The bowel preparation usedwas bisacodyl tablets via split dose instruction. The quality of the bowel preparation was excellent.Bowel prep was administered using a split dose. Findings: The perianal and digital rectal examinations were normal. The ileum appeared normal. The cecum appeared normal. The colon (entire examined portion) appeared normal. Random colonbiopsy was performed to rule out microscopic colitis. Internal hemorrhoids were found during retroflexion. The hemorrhoids were small. Electronically signed by Kira Simon M.D. Kira Simon M.D. 06/11/2021 10:50:27 AM Number of Addenda: 0 Note Initiated On: 06/11/2021 9:56 AM Procedure Code(s): --- Professional --- 84742, Colonoscopy, flexible; with biopsy, single or multiple Diagnosis Code(s): --- Professional --- K64.8, Other hemorrhoids K52.9, Noninfective gastroenteritis and colitis, unspecified CPT copyright 2019 [employer]. All rights reserved. The codes documented in this report are preliminary and upon toy mechanic reviewmay be revised to meet current compliance requirements. 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 07/01/21 07/01/2021 07/01/2021 Insurance [facility] Member Subscriber Plan / Payer (Ef fective 2018-Present) Name:Elisa Ramirez Relation to Subscriber:Self Name:Elisa Ramirez Payer ID:[id number] (NAIC) Group ID:Not on file Type:MEDICAID RISK OTHER Address: [address] [place], [place] [id number] [place] [address] Advance Directives For more information, please contact: [phone] * Full Code (Latest Code Status on File) Date Activated Date Inactivated Comments 06/11/2021 8:36 AM 06/11/2021 3:38 PM * Full Code Date Activated Date Inactivated Comments 06/11/2021 8:36 AM 06/11/2021 8:36 AM Care Teams Bridge Rigger Relationship Specialty Start Date End Date Delta Dinh MD [address] [place] [id number] PCP - General 11/02/19
--- OUTSIDE RECORDS SUMMARY | 2024-10-13 18:46 | XMS_ITS | Encounter Summary ---
Author Organization [facility] Address [facility] [place] [address] Care Team Providers Care Doctor Of Optometry Name Role Phone Delta Dinh MD Primary Care Provider [phone] Reason for Visit * Reason Onset Date Comments Patient Requested Call 05/23/2020 Encounter Details Date Type Department Care Team (Late st Contact Info) Description 05/23/2020 Telephone [facility] [address] [place], [place] [id number] Tiera Joseph MD [address] [place] [address] Patient Requested Call Social History Tobacco Use Types Packs/Day Years Used Date Smoking Tobacco: Never Assessed Comments Unknown Sex and Gender Information Value Date Recorded Sex Assigned at Not on file Legal 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 Unable to assess 05/15/2020 11:15 AM CS T documented as of this encounter Miscellaneous Notes * Telephone Encounter - Shi Caraballo RN - 05/23/2020 12:39 PM CST RN left voicemail for patient to return call to office. ET OPERATOR * Telephone Encounter - Malathi Pickering - 05/23/2020 12:15 PM CST Patient called in requested a call back regarding her decision for surgery- Call back# [phone] ET OPERATOR documented in this encounter Plan of Treatment Not on file documented as of this encounter Visit Diagnoses Not on filedocumented in this encounter Care Teams Doctor Of Optometry Relationship Specialty Start Date End Date Delta Dinh MD [address] [address] PCP - General 01/11/20 documented as of this encounter
--- OUTSIDE RECORDS SUMMARY | 2024-10-13 18:46 | XMS_ITS | Clinical Summary ---
Author Organization [facility] Address [address] [place] [address] Care Team Providers Care Ram Press Operator Name Role Phone Delta Dinh MD Primary Care Provider [phone] Allergies Active Allergy Reactions Criticality Noted Date [...] as needed for diarrhea 10 tablet 02/23/20 21 Active Additional Information Patient not taking.Reported on 10/04/2021 dicyclomine (BENTYL) 20 mg tablet Take 1 tablet (20 mg total) by mouth every 6 (six) hours as needed (abdominal cramping) 120 tablet 5 04/25/20 21 Active Additional Information Patient not taking.Reported on 07/07/[address] (PROTONIX) 40 mg EC tablet Take 1 tablet (40 mg total) by mouth daily 90 tablet 3 04/25/20 Active topiramate (TOPAMAX) 25 mg tablet Take 25 mg by mouth 2 (two) times a day 05/04/20 21 Active benzonatate (TESSALON) 100 mg capsuleIndications :Cough Take 1 capsule (100 mg total) by mouth 3 (three) times a day as needed for cough 15 capsule 09/06/19 22 Active Additional Information Patient not taking.Reported on [...] (04/25/2021): Added automatically from request for surgery [id number] Mixed irritable bowel syndrome 04/25/2021 Overview (04/25/2021): Added automatically from request for surgery [id number] Migraine 04/25/2021 Heart murmur 04/25/2021 Valvular heart disease 04/25/2021 Painless rectal bleeding 12/05/2019 Overview (12/05/2019): Added automatically from request for surgery [id number] Diarrhea 12/05/2019 Overview (12/05/2019): Added automatically from request for surgery [id number] Sprain of interphalangeal joint of right little finger 06/13/2019 Left shoulder strain, initial encounter 06/13/19 20 Urinary tract infection in female 06/13/2019 Laceration of labia minora 02/24/2019 Dentalgia 02/07/2019 TMJ (temporomandibular joint disorder) 9 Cervicitis 05/25/2018 Pelvic pain in female 05/25/2018 Menorrhagia with regular cycle 05/25/2018 Elevated TSH 05/25/2018 Bacteriuria 05/25/2018 Myoclonic jerking 06/20/2017 Assessment & Plan (06/20/2017 10:04 AM DIRECTOR OF DISTANCE LEARNING): Patient has tremors generalized and myoclonic jerks [...] 06/20/2017 Assessment & Plan (06/20/2017 10:09 AM DIRECTOR OF DISTANCE LEARNING): Patient's valproic acid level is 178 on [...] ST Assessment & Plan (06/20/2017 10:05 AM DIRECTOR OF DISTANCE LEARNING): This is not very severe. Currently has no exacerbation. Disorientation Encounters Date Type Department Care Team Description 09/13/2024 Results Follow-Up [facility] Emergency Department [address] [place] [address] Popeye Ellis PA Urine culture Urine 09/12/2024 12:22 AM CDT - 09/12/2024 1:54 AM CDT Emergency [facility] Emergency Department [address] [place] [address] Chelsey Perkins MD Discharge Disposition: Left without being seen from Last 3 Months Immunizations Immunization Administration Dates Next Due Influenza Virus Vaccine Trivalent Mdv 03/07/2008 Influenza, Quadrivalent, Spl it, Preservative Free, Intramuscular 03/23/2018,05/28/2016 Influenza, Trivalent, IM (MDV) 06/25/2017,2007 Influenza, Trivalent, Preservative Free, Intramu scular 06/24/2017 Tdap 06/17/2018 Surgical History Surgery Date Site/Laterality Comments OTHER SURGICAL HISTORY 05/24/2008 - 05/23/2009 OM: tubes COLONOSCOPY 10/09/2010 COLONOSCOPY 06/11/2021 Medical History Medical History Date Comments Hx Other Medical OM Seizure disorder (HCC) Seizure d isorder Disorder of thyroid Thyroid dise ase Hx Other Medical Headache, migra ine Tension headache Headache, tensi on Hypothyroidism Family History Medical History Relation Name Comments Hypertension Father Hypertension; Relation Name Status Comments Father Social History Tobacco Use Types Packs/Day Years [...] on file Legal Sex Female 12:10 AM DIRECTOR OF DISTANCE LEARNING Gender Identity Not on file Sexual Orientation Not on file Obstetrics History Last Filed Vital Signs Vital Sign Reading [...] 09/11/2024 8:53 PM CDT Plan of Treatment Health Maintenance Due Date Last Done Comments Cervical Cancer Screening 1975 Depression Screening 1975 Hepatitis C Screening 1975 Hepatitis B Screening 1991 Regular Well Visit/Exam 18-64 1991 Breast Cancer Screening-Mammogram 06/15/2019 06/15/2018 Zoster Vaccine (1 of 2) 2023 Influenza Vaccine (Season Ended) 2025 03/23/2018, 06/25/2017, 06/24/2017, Additional history exists DTaP/Tdap/Td Vaccine (2 - Td or Tdap) 06/17/2028 06/17/2018 Colon Cancer Screening-Colonoscopy 06/11/2031 06/11/2021, 10/09/2010 Pneumococcal vaccine <65 Aged Out No longer eligible based on patient's age to complete this topic Procedures Procedure Name Priority Date/Time Associated Diagnosis [...] 8:57 PM CDT COLONOSCOPY 06/11/2021 9:56 AM DIRECTOR OF DISTANCE LEARNING from Last 3 Months or Most Recently Relevant to Health Maintenance Results * POCT hCG, urine (09/12/2024 12:46 AM CDT) HCG, ur, POC Negative Negative Lot Number [id number] QC Backgroud Clear Acceptable QC Control Line Acceptable Urine 09/12/2024 12:4 6 AM CDT Chelsey Perkins MD POINT OF CARE TEST ORDERABLES Fi nal Result * (ABNORMAL) Urinalysis reflex to microscopic and culture Urine (09/12/2024 12:45 AM CDT) Color, ur Yellow Yellow Clarity, ur Clear Clear [facility] ([facility]) Specific gravity, ur 1.019 1.003 - 1.030 [facility] ([facility]) pH, urine 8.5 [facility] ([facility]) Comment: Interpretive Data U rine pH is affected by diet, medications, systemic acid-base disturbances, and renal tubular function. pH may affect urinary stone formation. For example, urine pH below 6.0 may help reduce the tendency for calcium phosphate stones and pH greater than 6.0 may reduce the tendency for uric acid stone formation. Source: [facility] Current Interpretive Data was last revised on [...] Reflex to microscopic UA will be performed. [facility] ([facility]) Urine 09/12/2024 12:4 5 AM CDT 09/12/2024 12:48 AM CDT Chelsey Perkins MD LAB MICROBIOLOGY - GENERAL ORDER JOHANNY Final Result Performing Organization Address [facility] Co de Phone Number [facility] ([facility]) [address] [facility] [place] [address] * (ABNORMAL) Urinalysis, microscopic only (09/12/2024 12:45 AM CDT) WBC, ur 11-20(A) 0 - 5 /HPF RBC, ur 0-2 0 - 2 /HPF [facility] ([facility]) Epithelial cells, squamous, ur 1-5 0 - 5 /HPF [facility] ([facility]) Culture Reflex Comment Reflex to urine culture will be performed. [facility] ([facility]) Urine 09/12/2024 12:4 5 AM CDT 09/12/2024 12:48 AM CDT Chelsey Perkins MD LAB URINE ORDERABLES Final Resul t Performing Organization Address [facility] Co de Phone Number [facility] ([facility]) 1 [facility] [place] [address] * Urine culture Urine (09/12/2024 12:45 AM CDT) Report Final Report: Less than 100,000 colonies/mL (clinically insignificant growth based on current clinical standards) Comment:Testing performed by : [facility], [address] [place] [address] Organism (CLINICALLY INSIGNIFICANT GROWTH [facility] ([facility]) Urine 09/12/2024 12:4 5 AM CDT 09/12/2024 4:53 AM CDT Narrative [facility] ([facility]) - 09/13/2024 7:49 AM CDT Urine culture reflexed based upon urinalysis results. Testing performed by [facility] ([phone]) us Chelsey Perkins MD LAB MICROBIOLOGY - GENERAL ORDER JOHANNY Final Result [facility] ([facility]) 1 [facility] Department [place] [address] * eGFR (09/11/2024 9:52 PM CDT) eGFR [...] BLOOD ORDERABLES Final Resul t [facility] ([facility]) 1 [facility] Department [place] [address] * Differential, auto (09/11/2024 9:52 PM CDT) Neutrophil abs 4.79 1.50 - 6.50 K/cumm Imm gran abs 0.03 0.00 - 0.10 K/cumm [facility] ([facility]) Lymphocyte abs 2.98 0.80 - 3.30 K/cumm [facility] ([facility]) Monocyte abs 0.55 0.20 - 0.80 K/cumm [facility] ([facility]) Eosinophil abs 0.46 0.00 - 0.50 K/cumm [facility] ([facility]) Basophil abs 0.06 0.00 - 0.10 K/cumm [facility] ([facility]) Neutrophil pct 54.0 % [facility] ([facility]) Comment: Interpretive Data Percent cell count reference ranges are not reported, since discordance with absolute values may lead to misinterpretation of CBC data. Current Interpretive Data was last revised on 2017. Imm gran pct 0.3 % [facility] ([facility]) Comment: Interpretive Data Percent cell count reference [...] revised on 2017. Monocyte pct 6.2 % [facility] ([facility]) Comment: Interpretive Data Percent cell count reference [...] revised on 2017. Basophil pct 0.7 % [facility] ([facility]) Comment: Interpretive Data Percent cell count reference ranges are not reported, since discordance with absolute values may lead to misinterpretation of CBC data. Current Interpretive Data was last revised on 2017. Blood 09/11/2024 9:52 PM CDT 09/11/2024 9:56 PM CDT us Chelsey Perkins MD LAB BLOOD ORDERABLES Final Resul t [facility] ([facility]) 1 [facility] Department [place] [address] * CBC with auto differential (09/11/2024 9:52 PM CDT) WBC 8.87 3.80 - 9.90 K/cumm Hgb 13.0 11.9 - 15.5 g/dL [facility] ([facility]) Hct 39.7 35.6 - 45.5 % [facility] ([facility]) Plt 270 150 - 400 K/cumm [facility] ([facility]) MPV 9.7 9.1 - 12.3 fL [facility] ([facility]) RBC 4.27 3.90 - 5.20 M/cumm [facility] ([facility]) MCV 93.0 81.3 - 96.4 fL [facility] ([facility]) MCH 30.4 27.1 - 33.3 pg [facility] ([facility]) MCHC 32.7 32.3 - 35.7 g/dL [facility] ([facility]) RDW CV 13.4 11.1 - 14.9 % [facility] ([facility]) RDW SD 45.2 35.7 - 48.1 fL [facility] ([facility]) NRBC abs 0.00 0.00 - 0.01 K/cumm [facility] ([facility]) Blood Venous blood specimen / Unknown 09/11/2024 9:52 PM CDT 09/11/2024 9:56 PM CDT us Chelsey Perkins MD LAB BLOOD ORDERABLES Final Resul t [facility] ([facility]) 1 [facility] Department of Laboratories [place], [place] [id number] * (ABNORMAL) Comprehensive metabolic panel (09/11/2024 9:52 PM CDT) Sodium 139 135 - 145 mmol/L Potassium, pl 4.5 3.3 - 4.9 mmol/L [facility] ([facility]) Chloride 98 97 - 110 mmol/L [facility] ([facility]) CO2 29 22 - 32 mmol/L [facility] ([facility]) Anion gap 12 2 - 15 mmol/L [facility] ([facility]) BUN 14 6 - 25 mg/dL [facility] ([facility]) Creatinine 0.82 0.60 - 1.10 mg/dL [facility] ([facility]) Glucose 95 70 - 199 mg/dL [facility] ([facility]) Comment: Interpretive Data Fasting glucose [...] BLOOD ORDERABLES Final Resul t [facility] ([facility] [place]) 1 [facility] Department [place] [address] * ECG 12 lead (09/11/2024 8:57 PM CDT) 09/11/2024 8:57 PM CDT Narrative [facility] - 09/12/2024 6:51 AM CDT Vent Rate: 71 bpm RR Interval: 843 msec GA Interval: 147 msec QRS Duration: 96 msec QT Interval: 381 msec QTC Interval: 403 msec P-R-T Douglas: 51 - -46 - 79 degrees IMPRESSION: [...] Chelsey Perkins MD ECG ORDERABLES Final Result Performing Organization Address [facility] Co de Phone Number [facility] * COLONOSCOPY (06/11/2021 9:56 AM DIRECTOR OF DISTANCE LEARNING) Anatomical Region Laterality Modality Other Narrative Procedure Note Kira Simno MD - 06/11/2021 9:56 AM CST [facility] Patient Name: Elisa Ramirez Procedure Date: 06/11/2021 9:56 AM Date of : 1975 Admit Type: Outpatient Age: 45 Gender: Female Attending MD: Kira Simon M.D. Room: [facility] ENDOSCOPY ROOM 1 Note Status: Finalized Patient [...] passed under direct vision.The Pediatric Colonoscope [id number] was introduced through the anus and advanced [...] 9:56 AM Procedure Code(s): --- Professional --- 70002, Colonoscopy, flexible; with biopsy, single or multiple Diagnosis Code(s): --- Professional --- K64.8, Other hemorrhoids K52.9, Noninfective gastroenteritis and colitis, unspecified CPT copyright 2019 [employer]. All rights reserved. The codes documented in this report are preliminary and upon printing equipment mechanic reviewmay be revised to meet current compliance requirements. 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
--- OUTSIDE RECORDS SUMMARY | 2024-10-13 18:46 | XMS_ITS | Encounter Summary ---
Author Organization [facility] Address [address] [address] Phone Care Team Providers Care Elder Assistant Name Role Phone Delta Dinh MD Primary Care Provider Sriram Don MD Unavailable Salma Esquivel APRN, RESIZER OPERATOR Unavailable Reason for Visit * Reason Comments Medication Refill Encounter Details Date Type Department Care Team (Late st Contact Info) Description 06/13/2024 Refill [facility] - Gastroenterology [facility] [address] [place] [address] Salma Esquivel APRN, RESIZER OPERATOR [address] [place] [address] Medication Refill Social History Tobacco Use Types Packs/Day Years Used Date Smoking Tobacco: Never Smokeless Tobacco: Never Alcohol Use Standard Drinks/Week Comments No 0 (1 standard drink = 0.6 oz pur e alcohol) PHQ-2 Answer Date Recorded PHQ-2 Score 0 01/18/2019 Sexually Active Control Partners Comments Yes None Comments No Sex and Gender Information Value Date Recorded Sex Assigned at Not on file Legal Sex Female 10:14 AM CDT Gender Identity Not on file Sexual Orientation Not on file documented as of this encounter Miscellaneous Notes * Telephone Encounter - Gisela Walker RN - 06/13/2024 1:41 PM ENVELOPE STAMPING MACHINE OPERATOR Medication refilled and signed per [facility] chronic medication standing order for pediatric and adult patients. LOPE STAMPING MACHINE OPERATOR documented in this encounter Plan of Treatment Not on file documented as of this encounter Visit Diagnoses Diagnosis Gastroesophageal reflux disease, unspecified whether esophagitis present documented in this encounter Additional Health Concerns Assessment Noted Time PHQ-9 Depression Total Score: 0 03/23/20 18 3:00 PM CDT documented as of this encounter Care Teams Elder Assistant Relationship Specialty Start Date End Date Delta Dinh MD [address] [place] [address] PCP - General Internal Medicine 11/21/21 [facility]am Don [facility] [address] [address] Consulting Physician Urology 09/01/23 Salma Esquivel APRN, RESIZER OPERATOR [address] [place] [address] Nurse Practitioner Advanced Practice Nurse 04/06/24 documented as of this encounter
--- OUTSIDE RECORDS SUMMARY | 2024-10-13 18:46 | XMS_ITS | Clinical Summary ---
Author Organization [facility] Address [address] [facility] [address] [place] [address] Phone Care Team Providers Care Sql Programmer Name Role Phone Delta Dinh MD Primary Care Provider Sriram Don MD Unavailable Salma Esquivel APRN, WORD PROCESSING MACHINE OPERATOR Unavailable Allergies Active Allergy Reactions Criticality Noted Date Comments Sulfa Antibiotics Anaphylaxis High 12/11/2015 Medications HYDROcodone-ac etaminophen (NORCO) 5-325 MG Tablet 01/19/20 19 Active divalproex (DEPAKOTE ER) 500 MG TABLET SR 24 HR TAKE 1 TABLET BY MOUTH TWICE DAILY 60 Tab 3 08/21/19 20 Active valACYclovir (VALTREX) 500 MG Tablet Take 500 mg by mouth daily. 02/28/20 21 Active topiramate (TOPAMAX) 25 MG Tablet Topiramate 25 MG Oral Tablet QTY: 60 tablet Days: 30 Refills: 5 Written: 11/10/21 Patient Instructions: TAKE 1 TABLET BY MOUTH TWICE DAILY 05/04/20 21 Active levothyroxine (SYNTHROID) 50 MCG Tablet Take 50 mcg by mouth. Active gabapentin (NEURONTIN) 300 MG Capsule 04/20/20 20 Active FLUoxetine (PROzac) 20 MG Capsule TK 1 C PO D 11/24/19 20 Active ergocalciferol (VITAMIN D) 42244 UNIT Capsule Vitamin D (Ergocalciferol) 1.25 MG (66072 UT) Oral Capsule QTY: 4 capsule Days: 30 Refills: 5 Written: 11/10/21 Patient Instructions: 1 po qwk 11/11/19 Active dicyclomine (BENTYL) 20 MG Tablet 04/25/20 Active buPROPion (WELLBUTRIN) 150 MG XL tablet Take 150 mg by mouth daily. 11/14/19 Active escitalopram (LEXAPRO) 10 MG Tablet Take 10 mg by mouth daily. 08/18/19 24 Active estradiol (ESTRACE) 0.1 MG/GM Cream 1 g by Vaginal route twice a week. 42.5 g 3 09/02/19 24 Active HYDROcodone-ac etaminophen (NORCO) 5-325 MG TabletIndicati ons:Dental infection Take 1 Tablet by mouth every 6 hours as needed for Moderate or more severe pain. 12 Tablet 12/14/19 Active Additional Information Patient not taking.Reported on 09/14/2024 metoclopramide (REGLAN) 10 MG TabletIndicati ons:Dyspepsia, Gastroesophage al Reflux Disease Take 1 Tablet by mouth 4 times daily. Indications: Gastroesophageal Reflux Disease, Indigestion 30 Tablet 04/05/20 Active Additional Information Patient not taking.Reported on 09/14/2024 sucralfate (CARAFATE) 1 GM/10ML SuspensionIndi cations:Gastro esophageal reflux disease, unspecified whether esophagitis present SHAKE LIQUID AND TAKE 10 ML BY MOUTH EVERY 6 HOURS 414 mL 06/13/19 Active Additional Information Patient not taking.Reported on 09/14/2024 ondansetron (ZOFRAN) 4 MG Tablet 09/12/19 25 Active omeprazole (PriLOSEC) 40 MG CAPSULE DELAYED RELEASEIndicat ions:Gastroeso phageal reflux disease, unspecified whether esophagitis present Take 1 Capsule by mouth 2 times daily. 180 Capsule 09/15/19 25 Active omeprazole (PriLOSEC) 40 MG CAPSULE DELAYED RELEASEIndicat ions:Gastroeso phageal reflux disease, unspecified whether esophagitis present TAKE 1 CAPSULE BY MOUTH DAILY 90 Capsule 2 07/12/19 25 025 Discontin ued(Dose adjustmen t) Active Problems Problem Noted Date Diagnosed Date Recurrent UTI 06/27/2018 Thyroid disease Seizure Migraine Arthritis Acid reflux Encounters Date Type Department Care Team Description 09/19/2024 [facility]phone [facility] [address] [place] [phone] Salma Esquivel APRN, CNP 09/14/2024 2:30 PM CDT Office Visit [facility] [address] [place] [phone] Salma Esquivel APRN, RAHUL Gastroesophageal reflux disease, unspecified whether esophagitis present (Primary Dx); Epigastric pain; Nausea Discharge Disposition: Discharged to home or Selfcare 09/14/2024 Telephone [facility] [address] [place] [phone] Salma Esquivel APRN, CNP 09/14/2024 Travel 09/13/2024 Telephone [facility] [address] [place] [phone] Salma Esquivel APRN, RAHUL from Last 3 Months Immunizations Immunization Administration Dates Next Due Influenza Vaccine 06/24/2017 Influenza Vaccine greater than 3 yrs 06/25/2017 Influenza Vaccine, Quadrivalent, PF 03/23/2018,0 05/28/2016 Influenza, Seasonal, Injectable, Undefined 03/07 Influenza, Trivalent, Adjuvanted, PF 03/07/2008 PUR FLU 3+ YRS PRES FREE QUAD IM 05/28/2016 TDAP Vaccine 06/17/2018 Family History Medical History Relation Name Comments Heart Attack Father Hypertension Father Stroke Father Heart Disease Mother Relation Name Status Comments Father Alive Mother Alive Social History Tobacco Use Types Packs/Day Years Used Date Smoking Tobacco: Never Smokeless Tobacco: Never Tobacco Cessation:Counseling Given: Not Answered Alcohol Use Standard Drinks/Week Comments No 0 [...] Sign Reading Time Taken Comments Blood Pressure 98/60 09/14/2024 2:32 PM CDT Pulse 81 09/14/2024 2:32 PM CDT Temperature 36.8 C (98.2 F) 09/14/2024 2:32 PM CDT Respiratory Rate 14 09/14/2024 2:32 PM CDT Oxygen Saturation 98% 09/14/2024 2:32 PM CDT Inhaled Oxygen Concentration - - Weight 53.6 kg (118 lb 1.6 oz) 09/14/2024 2:32 P M CDT Height 157.5 cm (5' 2 ) 09/14/2024 2:32 PM CDT Body Mass Index 21.6 09/14/2024 2:32 PM CDT Plan of Treatment Health Maintenance Due Date Last Done Comments Hepatitis C Virus (HCV) Screening 1973 Hepatitis B Immunization (1 of 3 - 19+ 3-dose series) 1992 Mammogram 06/15/2019 06/15/2018 Pap Smear 06/17/2021 06/17/2018 Cervical Cancer Screening (CCS) 06/17/2023 HPV/Cotest 06/17/2023 06/17/2018 Cologuard 2023 Immunochemical Fecal Occult Blood 2023 Pneumococcal Immunization (50+ years) (1 of 1 - PCV) 2023 Zoster Immunization (1 of 2) 2023 SARS-COV-2 Immunization (2 - season) 2024 01/11/2021 Influenza Immunization (Season Ended) 2025 03/23/2018, 06/25/2017, 06/24/2017, Additional history exists Td Immunization Every 10 Years (Adults With 1 Tdap) 06/17/2028 06/17/2018 Colonoscopy 06/11/2031 06/11/2021 Colorectal Cancer Screening 06/11/2031 Respiratory Syncytial Virus (RSV) Immunization (Adult) (1 - 1-dose 75+ series) 2048 06/11/2021 Discussion re Starting/Frequency of Mammograms Discontinued 06/15/2018 Human Papillomavirus (HPV) Immunization Aged Out No longer eligible based on patient's age to complete this topic Meningococcal Immunization (ACWY) Aged Out No longer eligible based on patient's age to complete this topic Rotavirus Immunization Aged Out No lo nger eligible based on patient's age to complete this topic Procedures Procedure Name Priority Date/Time Associated Diagnosis Comments HUMAN PAPILLOMA VIRUS (HPV) Routine 06/17/2018 1:55 PM DIRECTOR RADIO Screening for cervical cancer PATHOLOGY CYTOLOGY MOBILE SECURITY ARCHITECT Routine 06/17/2018 1:55 PM DIRECTOR RADIO Screening for cervical cancer ALESSANDRA SCREENING BILATERAL DIGITAL W CAD Routine 06/15/2018 10:24 AM DIRECTOR RADIO Screening mammogram, encounter for from Last 3 Months or Most Recently Relevant to Health Maintenance Results * PATHOLOGY CYTOLOGY MOBILE SECURITY ARCHITECT (06/17/2018 1:55 PM DIRECTOR RADIO) SPECIMEN ADEQUACY Satisfactory for evaluation. No endocervical cells present. 06/27/2018 2:45 PM DIRECTOR RADIO [facility] DESCRIPTIVE DIAGNOSIS Negative for intraepithelial lesions. No dysplastic cells present. 06/27/2018 2:45 PM DIRECTOR RADIO [facility] at 1445 DIRECTOR RADIO AUTOMATED EXAMINATION Analysis of this sample has been assisted by an automated imaging and review system (Innov[employer]iprep Imaging System, [employer], [place], [place]). This case is further evaluated and finalized by a field recorder and/or pathologist. 06/27/2018 2:45 PM DIRECTOR RADIO [facility] DISCLAIMER The PAP smear is a screening test designed to detect cancerous or precancerous cells of the uterine cervix. It is one of the best means available for detection of cervical cancer but still carries an inherent false-negative rate. The consequences of a false-negative PAP result can be minimized by adhering to current screening guidelines. The following are general guidelines recommended by the ACS, ASCP, ASCCP, and ACOG: PAP testing is recommended every three years for women 21-29, Co-Testing , a PAP test in conjunction with an HPV (Human Papillomavirus) test for women ages 30-65, and no PAP or HPV testing for women under the age of 21 or older than 65 unless clinically indicated. 06/27/2018 2:45 PM DIRECTOR RADIO [facility] Case Report Gynecologic Cytology Report Case: [id number] Authorizing Provider: Shanice Weaver PAC Collected: 06/17/2018 01:55 PM Ordering Location: [facility] Received: 06/17/2018 01:55 PM [facility] First Screen: Caroline Villalta Rescreen: Jose Francisco Cobos Specimen: TP Screen, CERVIX/ENDOCERVIX 06/27/2018 2:45 PM DIRECTOR RADIO [facility] HPV Reflex if ASCUS? No 06/27/2018 2:45 PM DIRECTOR RADIO [facility] Specimen of unknown material (specimen) CERVIX UTERI STRUCTURE / Unknown Non-Phlebotomy Collection / Unknown 06/17/2018 1:55 PM DIRECTOR RADIO 06/17/2018 1:55 PM DIRECTOR RADIO us Shanice Weaver PAC PATHOLOGY/CYTOLOGY ORDER JOHANNY Final Result Performing Organization Address City/State/[facility] Co de Phone Number [facility] [address] [phone], * HUMAN PAPILLOMA VIRUS (HPV) (06/17/2018 1:55 PM DIRECTOR RADIO) HPV OTHER HIGH RISK TYPES, PCR NEGATIVE NEGATIVE 06/20/2018 2:55 PM DIRECTOR RADIO [facility] Comment: The following Other High Risk types were not detected: 31, 33, 35, 39, 45, 51, 52, 56, 58, 59, 66, and 68. A negative high-risk HPV result does not exclude the possibility of future cytologic HSIL or underlying CIN2-3 or cancer. The presence of PCR inhibitors may cause false negative or invalid results. If concentrations of whole blood in the sample exceed 1.5% (dark red or brown coloration) in PreservCyt solution, there is a likelihood of obtaining a false-negative result. HPV TYPE 16 NEGATIVE NEGATIVE 06/20/2018 2:55 PM DIRECTOR RADIO [facility] Comment: A negative high-risk HPV result does not exclude the possibility of future cytologic HSIL or underlying CIN2-3 or cancer. The presence of PCR inhibitors may cause false negative or invalid results. If concentrations of whole blood in the sample exceed 1.5% (dark red or brown coloration) in PreservCyt solution, there is a likelihood of obtaining a false-negative result. HPV TYPE 18 NEGATIVE NEGATIVE 06/20/2018 2:55 PM DIRECTOR RADIO [facility] Comment: A negative high-risk HPV result does not exclude the possibility of future cytologic HSIL or underlying CIN2-3 or cancer. The presence of PCR inhibitors may cause false negative or invalid results. If concentrations of whole blood in the sample exceed 1.5% (dark red or brown coloration) in PreservCyt solution, there is a likelihood of obtaining a false-negative result. Specimen of unknown material (specimen) Non-Phlebotomy Collection / Unknown 06/17/2018 1:55 PM DIRECTOR RADIO 06/17/2018 1:55 PM DIRECTOR RADIO Narrative [facility] - 06/20/2018 2:55 PM DIRECTOR RADIO Performed by Real-Time Polymerase Chain Reaction (PCR) on the Sanjuana Randall 4800. This assay has been validated for use with post-aliquot samples from the [employer] T5000 processor. us Shanice Weaver PAC LAB SEND OUTS Final Re sult [facility] [address] [place] [address], [place] * ALESSANDRA SCREENING BILATERAL DIGITAL W CAD (06/15/2018 10:24 AM DIRECTOR RADIO) Anatomical Region Laterality Modality breast Bilateral Mammography 06/15/2018 10:0 0 AM DIRECTOR RADIO Narrative 06/15/2018 2:33 PM DIRECTOR RADIO - ALESSANDRA SCREENING BILATERAL DIGITAL W CAD BILATERAL DIGITAL SCREENING MAMMOGRAM WITH CAD WITH MEDIOLATERAL OBLIQUE CRANIOCAUDAL: 06/15/2018 The study was acquired using digital technology and interpreted from soft copy. Current study was also evaluated with ICAD version 7.2. CLINICAL: Baseline screening. Patient has no complaints. No personal history of cancer. No family history of breast cancer. COMPARISONS: No prior exams were available for comparison. BREAST TISSUE:The tissue of both breasts is heterogeneously dense. This may lower the sensitivity of mammography. FINDINGS: No significant masses, calcifications, or other findings are seen in either breast. IMPRESSION: BI-RAD 1 NEGATIVE There is no mammographic evidence of malignancy. A 1 year screening mammogram is recommended. The patient has been or will be contacted. The patient will be entered into a reminder system with a target due date of 1 year for her next screening exam. Electronically signed by: Afsaneh gonzalez/charbel:06/15/2018 11:37:40 Hydrology Technician: Laureen Tapia (R)), [facility] letter sent: Normal Exam Reading location: [place] BI-RADS: 1 Negative Procedure Note Afsaneh Santos MD - 06/15/2018 - ALESSANDRA SCREENING BILATERAL DIGITAL W CAD BILATERAL DIGITAL SCREENING MAMMOGRAM WITH CAD WITH MEDIOLATERAL OBLIQUE CRANIOCAUDAL: 06/15/2018 The study was acquired using digital technology and interpreted from soft copy. Current study was also evaluated with [employer] version 7.2. CLINICAL: Baseline screening. Patient has no complaints. No personal history of cancer. No family history of breast cancer. COMPARISONS: No prior exams were available for comparison. BREAST TISSUE:The tissue of both breasts is heterogeneously dense. This may lower the sensitivity of mammography. FINDINGS: No significant masses, calcifications, or other findings are seen in either breast. IMPRESSION: BI-RAD 1 NEGATIVE There is no mammographic evidence of malignancy. A 1 year screening mammogram is recommended. The patient has been or will be contacted. The patient will be entered into a reminder system with a target due date of 1 year for her next screening exam. Electronically signed by: Afsaneh gonzalez/charbel:06/15/2018 11:37:40 Hydrology Technician: Laureen Grover(Gucci)(Maranda), [facility] letter sent: Normal Exam Reading location: [place] BI-RADS: 1 Negative Yvette Serrano [facility] IMG MAMMO ORDERAB LES Final Result from Last 3 Months or Most Recently Relevant to Health Maintenance Insurance MEDICAID [employer] Care Teams Sql Programmer Relationship Specialty Start Date End Date Delta Dinh MD [address] [place] [id number] PCP - General Internal Medicine 11/21/21 Sriram Don MD [address] [phone] Consulting Physician Urology 09/01/23 Salma Esquivel APRN, WORD PROCESSING MACHINE OPERATOR [address] [place] [address] Nurse Practitioner Advanced Practice Nurse 04/06/24
--- OUTSIDE RECORDS SUMMARY | 2024-10-13 18:46 | XMS_ITS | Encounter Summary ---
Author Organization [facility] Address [address] [place] [address] Phone Care Team Providers Care Waffle Machine Operator Name Role Phone Delta Dinh MD Primary Care Provider [phone] Sriram Don MD Unavailable Salma Esquivel APRN, MANAGER WIRELESS Unavailable Reason for Visit * Reason Comments Medication Refill Encounter Details Date Type Department Care Team (Late st Contact Info) Description 07/11/2024 Refill [facility] - Gastroenterology [facility] [address] [place] [address] Salma Esquivel APRN, MANAGER WIRELESS [address] [place] [address] Medication Refill Social History Tobacco [...] Telephone Encounter - Gisela Walker RN - 07/12/2024 9:00 AM CEMENT DESPATCH OPERATOR Medication refilled and signed per [facility] chronic medication standing order for pediatric and adult patients. NT DESPATCH OPERATOR documented in this encounter Plan of Treatment Not on file documented as of this encounter Visit Diagnoses Diagnosis Gastroesophageal reflux disease, unspecified whether esophagitis present documented in this encounter Additional Health Concerns Assessment Noted Time PHQ-9 Depression Total Score: 0 03/23/20 18 3:00 PM CDT documented as of this encounter Care Teams Waffle Machine Operator Relationship Specialty Start Date End Date Delta Dinh MD [address] [place] [id number] PCP - General Internal Medicine 11/21/21 [facility] [address] [phone] Consulting Physician Urology 09/01/23 Salma Esquivel APRN, MANAGER WIRELESS [address] [facility] [place] [address] Nurse Practitioner Advanced Practice Nurse 04/06/24 documented as of this encounter
--- OUTSIDE RECORDS SUMMARY | 2024-10-13 18:46 | XMS_ITS | Encounter Summary ---
Author Organization [facility] Address [address] [place] [address] Care Team Providers Care [employer] Team Member Name Role Phone Delta Dinh MD Primary Care Provider [phone] Encounter Details Date Type Department Care Team (Late st Contact Info) Description 09/13/2024 Results Follow-Up [facility] Emergency Department [address] [place] [address] Popeye Ellis PA [address] [facility] [address] Urine culture Urine Social History Tobacco Use Types Packs/Day Years [...] on file Legal Sex Female 12:10 AM VEGETABLE HARVEST MACHINE OPERATOR Gender Identity Not on file Sexual Orientation Not on file documented as of this encounter Miscellaneous Notes * Result Encounter Note - Popeye Ellis PA - 09/13/2024 10:41 PM CDT Final Report: Less than 100,000 colonies/mL (clinically insignificant growth based on current clinical standards) No change in treatment documented in this encounter Plan of Treatment Not on file documented as of this encounter Visit Diagnoses Not on filedocumented in this encounter Additional Health Concerns Infection Onset Date Last Indicated Resolved Time 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
[2024-10-13 18:47] VITALS: BP 103/64; PULSE 71; RESP 16; TEMP 36.8; O2SAT 99
--- NOTE | 2024-10-13 18:53 | ED_ITS ---
HPI - Female Genitourinary General Chief complaint: Urogenital-Female Stated complaint: Urinary Problems, Burning, Itching Time Seen by Provider: 10/13/24 18:57 Source: patient and RN notes reviewed Mode of arrival: ambulatory Limitations: no limitations History of Present Illness HPI Narrative: 49-year-old female presented for complaint of vaginal itching for 3 days. Started with burning with urination today. Denies hematuria, nausea, vomiting, abdominal pain, flank pain, constipation, diarrhea, fevers or chills. Related Data Home Medications ?Medication ?Instructions ?Recorded ?Confirmed ?Last Taken ?Type divalproex 500 mg tablet,delayed 500 mg PO BID 12/28/20 03/23/24 Unknown History release ergocalciferol (vitamin D2) 1,250 1,250 mcg PO WEEKLY 05/27/21 03/23/24 Unknown History mcg (50,000 unit) capsule bupropion HCl 300 mg 24 hr tablet, 150 mg PO DAILY 01/12/22 03/23/24 Unknown History extended release escitalopram oxalate 10 mg tablet 10 mg PO DAILY 01/12/22 03/23/24 Unknown History valacyclovir 500 mg tablet 500 mg PO DAILY 04/03/23 03/23/24 Unknown History diclofenac sodium 75 mg 75 mg PO BID 07/30/23 03/23/24 Unknown History tablet,delayed release estradiol 0.01% (0.1 mg/gram) vaginal 10/13/24 Unknown History vaginal cream omeprazole 40 mg capsule,delayed mg 10/13/24 Unknown History release ondansetron HCl 4 mg tablet mg 10/13/24 Unknown History topiramate 50 mg tablet mg 10/13/24 Unknown History Allergies Allergy/AdvReac Type Severity Reaction Status Date / Time Sulfa (Sulfonamide Allergy Severe Anaphylaxis Verified 10/13/24 18:53 Antibiotics) Review of Systems Review of Systems: CONSTITUTIONAL: Denies body aches, fever, chills, or sweats. CARDIOVASCULAR: Denies chest pain, palpitations, or edema. RESPIRATORY: Denies cough or dyspnea. GASTROINTESTINAL: Denies abdominal pain, nausea, vomiting, or diarrhea. GENITOURINARY: Reports dysuria, vaginal itching denies frequency, urgency, hematuria, flank pain, discharge SKIN: Denies rash, itching, or wounds. MUSCULOSKELETAL: Denies back pain or myalgia. [facility] Past Medical History Medical History Anxiety and depression Epilepsy GERD (gastroesophageal reflux disease) Surgical History Surgical History Previous section x3 Family History Family History Mother Family history non-contributory Social History Social History Smoking status: Never smoker Alcohol intake: never Substance use: never Living arrangements: with family Occupation/Education: occupation Gender identity (if verbalized by the patient): Female Spiritual care concerns: No Comments At time of signature, I have reviewed and agree with nursing past medical, surgical, social and family history unless otherwise noted. Please see nursing chart for further information. There is no relevant family history pertinent to the presenting complaint Exam Narrative: GENERAL: Well-appearing and in no acute distress. ENT: Mucous membranes pink and moist. NECK: Normal AROM. Supple. CHEST: No respiratory distress. Clear to auscultation. HEART: Regular rate and rhythm. ABDOMEN: Soft, nontender, nondistended, normal active bowel sounds. No CVA tenderness : normal vaginal introitus, pink without discharge/bleeding, foreign body, laceration or lesions. No swelling. Nontender. normal appearance of the cervix, closed Chaperoned by Frieda WALSH SKIN: Warm, dry, no rash. NEURO: No focal deficits. Alert and oriented x3. Gait steady. PSYCH: Normal affect. Course Course Emergency Course: Patient is aware of diagnosis, understands and agrees to treatment plan. An ticipatory guidance given. Patient agrees to follow-up as directed and is aware of reasons to seek care at the emergency department. Portions of this record may have been created with voice recognition software Level of Care: Express Care Visit Vital Signs Vital signs: Vital Signs Temperature 98.2 F 10/13/24 18:47 Pulse Rate 71 10/13/24 18:47 Respiratory Rate 16 10/13/24 18:47 Blood Pressure 103/64 10/13/24 18:47 Pulse Oximetry 99 10/13/24 18:47 Oxygen Delivery Room Air 10/13/24 18:47 Temperature 98.2 F 10/13/24 18:47 Pulse Rate 71 10/13/24 18:47 Respiratory Rate 16 10/13/24 18:47 Blood Pressure 103/64 10/13/24 18:47 Pulse Oximetry 99 10/13/24 18:47 Oxygen Delivery Room Air 10/13/24 18:47 Reviewed MDM - Female Genitourinary MDM Narrative Medical decision making narrative: Discussed physical exam findings; pt agreeable to treatment for yeast and uti at this time. Swabs sent for BV and yeast... Advised supportive measures and signs/symptoms to go to the ER. Pt is appropriate for outpt treatment and f/u. Differential Diagnosis Differential diagnosis: Likely urinary tract infection, bacterial vaginosis, trichomoniasis, vaginitis and cystitis Discharge Plan Discharge Clinical Impression: Vaginitis Patient Disposition: Home Condition: Stable Instructions: Antibiotic Form, Urinary Tract Infection in Women (ED) Additional Instructions: Take the antibiotic as prescribed for UTI You will also be treated for yeast infection The urine will be sent of for a culture to identify what type of bacteria is causing your infection. If the culture shows that the antibiotic will not get rid of your infection, you will be notified and a new antibiotic will be called in for you. Increase water intake you will need to follow up with your PCP, call to schedule an appointment. Go to the ER for any worsening symptoms or concerns Patient Language: Frisian Prescriptions: New amoxicillin-pot clavulanate [Augmentin] 500-125 mg tablet 1 tablet PO Q12H 5 Days Qty: 10 0RF fluconazole 150 mg tablet 150 mg PO DAILY Qty: 2 0RF No Action divalproex 500 mg tablet,delayed release (DR/EC) 500 mg PO BID ergocalciferol (vitamin D2) 1,250 mcg (50,000 unit) capsule 1,250 mcg PO WEEKLY bupropion HCl 300 mg tablet extended release 24 hr 150 mg PO DAILY escitalopram oxalate 10 mg tablet 10 mg PO DAILY valacyclovir 500 mg tablet 500 mg PO DAILY ondansetron HCl 4 mg tablet omeprazole 40 mg capsule,delayed release(DR/EC) estradiol 0.01 % (0.1 mg/gram) cream VAGINAL topiramate 50 mg tablet diclofenac sodium 75 mg tablet,delayed release (DR/EC) 75 mg PO BID fluconazole 150 mg tablet 150 mg PO DAILY Qty: 1 0RF Follow-up/Referrals: PHYSICIAN NOT ON STAFF,NONSTAFF [Primary Care Provider] - Time of Disposition: 19:14
[2024-10-13 19:22] LABS: EDUAAPPEAR Clear; EDUABILI Negative (Negative); EDUABLOOD Negative (Negative); EDUACOLOR1 Yellow; EDUAGLUCOSE Negative (Negative); EDUAKETONE Negative (Negative); EDUALEUKO 1+ (Negative); EDUANITRATE Negative (Negative); EDUAPROTEIN Negative (Negative); EDUAUROBILI 0.2
[2024-10-16 16:29] LABS: Bacterial Vaginosis NEGATIVE (NEGATIVE)
== END 2024-10-13 19:21 | disposition home or self-care (01) ==
PROVIDERS: Emergency Provider Nurse Practitioner Family
DX: N76.0 Acute vaginitis (principal); F41.9 Anxiety disorder, unspecified; F32.A Depression, unspecified; K21.9 Gastro-esophageal reflux disease without esophagitis
CPT/HCPCS: 81003; 81513; 87070; 87086; 99213; G0463

== ENCOUNTER 2025-03-05 12:15 | Emergency (ER) | payer OTHER, SELFPAY ==
[2025-03-05 12:20] VITALS: BP 113/61; PULSE 80; RESP 18; TEMP 36.6; O2SAT 98
--- NOTE | 2025-03-05 12:25 | ED.URI ---
HPI - URI/Sore Throat General Chief Complaint: Upper Respiratory Infection Stated Complaint: cough/congestion/throat Time Seen by Provider: 03/05/25 12:25 Source: patient, RN notes reviewed and old records reviewed Mode of arrival: ambulatory Limitations: no limitations History of Present Illness HPI Narrative: 49 year old female who presents to [facility] with complaints of 3 day history of sore throat and sinus congestion with cough. Patient reports that she has been taking Robitussin and also NyQuil for her symptoms without improvement. Patient reports no fevers, chills or sweats reports general malaise. Patient reports no known ill contacts. MD elicited complaint: cough, sore throat, rhinorrhea and nasal congestion Onset (ago): day(s) (3) Consistency: progressively worsening Pain scale (0-10): 9 Able to tolerate fluids by mouth: Yes Exacerbating factors: swallowing Treatments prior to arrival: other (Robitussin and NyQuil) Related Data Home Medications ?Medication ?Instructions ?Recorded ?Confirmed ?Last Taken ?Type divalproex 500 mg tablet,delayed 500 mg PO BID 12/28/20 03/23/24 Unknown History release ergocalciferol (vitamin D2) 1,250 1,250 mcg PO WEEKLY 05/27/21 03/23/24 Unknown History mcg (50,000 unit) capsule bupropion HCl 300 mg 24 hr tablet, 150 mg PO DAILY 01/12/22 03/23/24 Unknown History extended release valacyclovir 500 mg tablet 500 mg PO DAILY 04/03/23 03/23/24 Unknown History omeprazole 40 mg capsule,delayed mg 10/13/24 Unknown History release Allergies Allergy/AdvReac Type Severity Reaction Status Date / Time Sulfa (Sulfonamide Allergy Severe Anaphylaxis Verified 03/05/25 12:23 Antibiotics) Review of Systems Review of Systems: CONSTITUTIONAL:Reports malaise, no chills, sweats, or fever. EYES: Denies visual changes, redness, or discharge. ENT: Reports rhinorrhea, congestion, sinus pain,no otalgia and positive for sore throat. CARDIOVASCULAR: Denies chest pain, palpitations, or edema. RESPIRATORY: Reports non productive cough.? Denies dyspnea. GASTROINTESTINAL: Denies abdominal pain, nausea, vomiting, diarrhea SKIN: Denies rash or itching. MUSCULOSKELETAL: Denies myalgia. NEUROLOGIC: Denies headache. All systems reviewed & are unremarkable except as noted in HPI and below PMFSH Past Medical History Medical History (Updated 03/06/25 @ 09:20 by Mignon Ospina NP) Abnormality of heart valve Genital herpes Anxiety and depression GERD (gastroesophageal reflux disease) Epilepsy Surgical History Surgical History Previous section x3 Family History Family History Mother Family history non-contributory Social History Social History (Updated 03/06/25 @ 09:17 by Mignon Ospina NP) Smoking status: Former smoker Additional smoking assessment comments: states quit smoking 3 years ago Alcohol intake: current Alcohol use details: alcohol 1 X week Substance use: former Substance use type: crack/cocaine Last use: reports no use for 3 years Living arrangements: with family Occupation/Education: occupation Gender identity (if verbalized by the patient): Female Spiritual care concerns: No Comments At time of signature, agree with nursing past medical, surgical, social and family history. There is no relevant family history pertinent to the presenting complaint Exam Narrative: GENERAL:Ill-appearing, well-nourished, and in no acute distress. HEAD: Normocephalic EYES: PERRLA, conjunctivae clear ENT: Nares clear, turbinates edematous and erythematous, clear discharge, sinus pressure. Mucous membranes moist. TM pearly prince with dull light reflex bilaterally; no tragal tenderness. Oropharynx erythematous without lesions. Tonsils not enlarged and without exudate, no drooling, no hoarseness, no trismus, uvula midline.post nasal drainage NECK: Supple. No lymphadenopathy CHEST: Clear to auscultation, breath sounds equal. No wheezing, rhonchi, rales, or stridor. No respiratory distress, speaks in full sentences.dry cough SAO2 98% on room air HEART: Regular rate and rhythm. No murmur heard. SKIN: Warm, dry, no rash. NEURO: Alert and oriented x3. PSYCH: Normal mood and affect Course Course Emergency Course: Patient is aware of diagnosis, understands and agrees to treatment plan.? Anticipatory guidance given.? Patient agrees to follow-up as directed and is aware of reasons to seek care at the emergency department. Portions of this record may have been created with voice recognition software Level of Care: Express Care Visit Vital Signs Vital signs: Vital Signs Temperature 36.6 C 03/05/25 12:20 Pulse Rate 80 03/05/25 12:20 Respiratory Rate 18 03/05/25 12:20 Blood Pressure 113/61 03/05/25 12:20 Pulse Oximetry 98 03/05/25 12:20 Oxygen Delivery Room Air 03/05/25 12:20 Temperature 36.6 C 03/05/25 12:20 Pulse Rate 80 03/05/25 12:20 Respiratory Rate 18 03/05/25 12:20 Blood Pressure 113/61 03/05/25 12:20 Pulse Oximetry 98 03/05/25 12:20 Oxygen Delivery Room Air 03/05/25 12:20 Reviewed MDM - URI/Sore Throat MDM Narrative Medical decision making narrative: Differential diagnosis considered: Mckoy virus, strep pharyngitis, allergic rhinitis, upper respiratory tract infection, sinusitis, rhinosinusitis, nasopharyngitis. viral pharyngitis, otitis media, otitis externa, pneumonia, bronchitis, viral cough syndrome, viral syndrome, and influenza.? Exam findings show no acute concerns or changes; patient is non-toxic appearing and is in no distress.? Patient is appropriate for outpatient treatment and follow-up. Differential Diagnosis Differential diagnosis: Likely upper respiratory infection, sinusitis, viral infection, influenza, pharyngitis and other (strep pharyngitis, COVID) Medical Records Attestation: I reviewed the patient's medical records. Lab Data Attestation: I reviewed the patient's lab results. Lab results narrative: strep screen negative, culture sent, Influenza A&B negative, COVID antigen negative Labs: Lab Results 03/05/25 03/05/25 03/05/25 Range/Units 12:24 12:24 12:24 POC Influenza A Ag Negative Negative (Negative) POC Influenza B Ag Negative Negative (Negative) POC SARS CoV-2 Ag Negative (Negative) POC Grp A Strep Screen Negative (Negative) 03/05/25 Range/Units 12:24 POC Influenza A Ag (Negative) POC Influenza B Ag (Negative) POC SARS CoV-2 Ag (Negative) POC Grp A Strep Screen Negative (Negative) reviewed Critical Care Time Critical Care Time Critical Care Time: No Discharge Plan Discharge Clinical Impression: Bacterial sinusitis, Acute cough Patient Disposition: Home Condition: Stable Instructions: Antibiotic Form, Sinusitis (ED) Additional Instructions: Increase fluids especially juices and water [id number] cough and cold medicine of your choice for your symptoms Zyrtec, Claritin or Renée daily include plain Sudafed Steroids as directed--take with food heat to the face 20-30 minutes 4-6 times a day for pain Salt water gargles, throat lozenges or throat sprays as desired Antibiotic as directed--finished the medication If your symptoms persist, change or worsen significantly before you can contact your personal physician then please, without delay, go to the emergency department for further evaluation. Follow-up with PCP in 7-10 days or sooner if needed Patient Language: Hebrew Prescriptions: New methylprednisolone [Medrol (T[place])] 4 mg tablets,dose pack See Rx Instructions .ROUTE .COMPLEX Qty: 21 0RF Rx Instructions: orally per package directions take with food amoxicillin 875 mg tablet 875 mg PO Q12H Qty: 14 0RF No Action divalproex 500 mg tablet,delayed release (DR/EC) 500 mg PO BID ergocalciferol (vitamin D2) 1,250 mcg (50,000 unit) capsule 1,250 mcg PO WEEKLY bupropion HCl 300 mg tablet extended release 24 hr 150 mg PO DAILY valacyclovir 500 mg tablet 500 mg PO DAILY omeprazole 40 mg capsule,delayed release(DR/EC) Follow-up/Referrals: PHYSICIAN,FINANCIAL ADMINISTRATIVE ASSISTANT [Primary Care Provider, Internal Medicine] Time of Disposition: 13:25 Quality [place] Coma Scale Eyes: Open Verbal: Oriented and Alert Motor: Follows Commands [place] Coma Total Score: 15
[2025-03-05 12:34] LABS: EDCOVIDSCREEN Negative (Negative); EDINFLUASCREEN Negative (Negative); EDINFLUBSCREEN Negative (Negative); EDSTREPNEGPOS1 Negative (Negative)
--- OUTSIDE RECORDS SUMMARY | 2025-03-05 13:18 | XMS_ITS | Clinical Summary ---
Author Organization [facility] Address [address] [place] [address] Care Team Providers Care Commercial Cleaner Name Role Phone Delta Dinh MD Primary Care Provider [phone] Source Comments [facility],non-owned Affiliates and Associated Physician Practices is amultiple site organization consisting of ambulatory clinics and hospital sitesin [place], [place], [place]. This disclosure is being madepursuant to the Care Everywhere program and may not contain all information available regarding this patient. Last updated 18.[facility] Allergies Active Allergy Reactions Criticality Noted Date Comments Sulfa Drugs Anaphylaxis High 12/11/2015 Medications * Be aware that medications may not be up to date on this document. Alwaysverify current medications with the patient. 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 Gender Identity Not on file Sexual Orientation [...] 2023 ZOSTER VACCINE (1 of 2) 2023 DEPRESSION SCREENING 05/24/2024 COVID-19 VACCINE (1 - 2023-25 season) 2025 INFLUENZA VACCINE (#1) 2025 , 06/25/2017, 06/24/2017, Additional history exists HIB VACCINE [...] patient's age to complete this topic Insurance [place] [employer] [facility] [employer] [facility] Care Teams Commercial Cleaner Relationship Specialty Start Date End Date Delta Dinh MD [address] [place] [address] PCP - General 01/11/20
--- OUTSIDE RECORDS SUMMARY | 2025-03-05 13:19 | XMS_ITS | Encounter Summary ---
Author Organization [facility] Address [facility] [facility] [place] [address] Care Team Providers Care Custodial Manager Name Role Phone Delta Dinh MD Primary Care Provider [phone] Reason for Visit * Reason Onset Date Comments Patient Requested Call 05/23/2020 Encounter Details Date Type Department Care Team (Late st Contact Info) Description 05/23/2020 Telephone [facility] [address] [place], [place] [id number] Tiera Joseph MD [address] [place] [address] Patient Requested Call Social History Tobacco Use Types Packs/Day Years Used Date Smoking Tobacco: Never Assessed Comments Unknown Sex and Gender Information Value Date Recorded Sex Assigned at Not on file 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 US COORDINATOR * Telephone Encounter - Malathi Pickering - 05/23/2020 12:15 PM CST Patient called in requested a call back regarding her decision for surgery- Call back# [phone] US COORDINATOR documented in this encounter Plan of Treatment Not on file documented as of this encounter Visit Diagnoses Not on filedocumented in this encounter Care Teams Custodial Manager Relationship Specialty Start Date End Date Delta Dinh MD [address] [address] PCP - General 01/11/20 documented as of this encounter
[2025-03-05 13:23] LABS: EDINFLUASCREEN Negative (Negative); EDINFLUBSCREEN Negative (Negative); EDSTREPNEGPOS1 Negative (Negative)
== END 2025-03-05 13:27 | disposition home or self-care (01) ==
PROVIDERS: Emergency Provider Registered Nurse
DX: J32.9 Chronic sinusitis, unspecified (principal); R05.1 Acute cough; Z20.822 Contact with and (suspected) exposure to COVID-19; Z87.891 Personal history of nicotine dependence; G40.909 Epilepsy, unspecified, not intractable, without status epilepticus; K21.9 Gastro-esophageal reflux disease without esophagitis; F41.9 Anxiety disorder, unspecified; F32.A Depression, unspecified
CPT/HCPCS: 87081; 87426; 87804; 87880; 99213; G0463